=== PATIENT | male | born 1965 | race Caucasian/White ===

== ENCOUNTER 2020-05-08 12:41 | Inpatient (IN) ==
--- NOTE | 2020-05-08 13:06 | Emergency Department Note ---
Impression & Plan Abdominal pain, lower, Metastatic malignant neoplasm of unknown primary site, Ascites, Hyponatremia, Esophageal varices, Portal vein thrombosis, Jaundice, Hyperbilirubinemia, Pulmonary embolism ED Provider Note NAME: ALEX GALVAN AGE: 54 SEX: M ARRIVES VIA: Walk-In INFORMANT: [Patient] ED PROVIDER(S): Lucio Calero MD CHIEF COMPLAINT: Lower abdominal pain PLAN: Disposition: Admitted Condition: Guarded MEDICAL DECISION MAKING: Patient presented with complaints of jaundice and abdominal distention. His work-up included CT imaging and laboratory studies. The patient also had an ECG performed which showed sinus tachycardia. No ischemia. The patient has a mild anemia but no leukocytosis on CBC. His INR and PTT are elevated. He has elevated LFTs, hyponatremia and hypokalemia. His total bilirubin is very elevated at 10.3. Chest x-ray questioned an infiltrate and atelectasis in the right base. CT imaging of the abdomen pelvis was performed and shows significant tumor burden throughout as well as ascites. Questionable PE was noted. There is deep vein thrombosis in the abdomen as well. I relayed the findings to the patient. This is very concerning for a malignancy. Further management in the hospital will be necessary given the constellation of symptoms and signs. Patient was in agreement. I discussed the case with Dr. Alford of internal medicine. He is ordering IV heparin and I ordered the potassium. The patient will be evaluated and admitted for further work-up and management. Triage Nursing notes reviewed and agree them. Vital Signs: reviewed and remarkable for mild tachycardia Differential diagnosis: Appendicitis, testicular torsion, infections, diverticulitis, UTI, obstruction, mesenteric ischemia, aortic pathology, inflammatory bowel disease, renal colic, PUD, pancreatitis, biliary pathology, hernia, volvulus, constipation, liver disease as well as other pathologies. ER treatment provided: Saline hydration IV potassium IV heparin by internal medicine Diagnostics interpreted by me: ECG: Rate: 109 Rhythm: Sinus [place]: Right axis deviation QRS: Low voltage ST segements: No elevation or depression. Other: Septal Q waves Cardiac Monitoring: Cardiac monitoring ordered by me: The patient was placed on continuous cardiac monitoring and observed. It revealed a normal sinus rhythm at 95 beats per minute without ectopy or evidence of dysrhythmia. Laboratory studies: As above Imaging studies: CT scan of the abdomen pelvis and chest x-ray performed. Noted above. I refer to the EMR for further details. Consultation(s): Internal medicine HPI: The patient is a 54 year old male who presents to the Emergency Room with complaints of . This started several months ago and is worsening over the last 4 days. The patient also notes the following associated symptoms, joint pains, abdominal distention, weight loss, SOB, N/V. The patient has found no relieving factors. Current pain is rated as 3/10. He also notes being jaundice last two months. He quit ETOH at that time and jaundice improved. Pt denies LOC, headache, fevers, chills, diaphoresis, visual changes, neck pain, chest pain, back pain, melena, hematochezia, urinary symptoms, numbness, weakness, lymphadenopathy, rash, or other complaints. ROS: See above HPI for pertinent positives & negatives. A total of [10] systems reviewed and were otherwise negative. PAST MEDICAL HISTORY:[See Below] Neuroma PAST SURGICAL HISTORY:[See Below] FAMILY HISTORY:[See Below] SOCIAL HISTORY:[See Below]+ETOH, HOME MEDICATIONS:[See Below] ALLERGIES:[See Below] VITALS:[See Below] PHYSICAL EXAMINATION: GENERAL: Awake, alert, jaundice-appearing, in no distress HENT: Normocephalic, atraumatic. Oropharynx unremarkable. EYES: Normal conjunctiva. Sclera icteric. NECK: Inspection normal. Non-tender. Supple. No nuchal rigidity. FROM. No masses. RESPIRATORY: Clear to auscultation. No wheezes. No rales. Normal respiratory effort. CARDIAC: Normal rate. Normal rhythm. No murmurs. No rubs. Extremities warm and well perfused. Pulses equal. No JVD. GI: Soft, moderately-distended. +fluid wave. Lower tenderness to palpation. No rebound or guarding. No masses. RECTAL: Deferred. MUSCULOSKELETAL: Muscular atrophy. Chest examination reveals no tenderness. The back is symmetrical on inspection without obvious abnormality. There is no CVA tenderness to palpation. No joint edema. LOWER EXTREMITIES: Calves are equal size bilaterally and non-tender. No edema. No discoloration. NEURO: Normal sensorium. No sensory or motor deficits noted. SKIN: No rash or jaundice noted. ED COURSE: [Critical Care:] I have personally spent greater than 32 minutes of critical care time in the direct management of this patient. This includes bedside care, interpretation of diagnostic studies, and testing, discussion with consultants, patient, and other required patient management activities. These minutes are in excess of all separately billable procedures. 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 Beliefs That Will Affect Care: None Current Living Situation: Spouse Other Information That Helps Us Care for You: No Feels Safe at Home: Yes Safety Concerns: Feels Safe At This Time Smoking Status: Never smoker Do You Dip or Chew Tobacco: No ; Second Hand Exposure: No ; Tobacco Cessation Education Requested by Patient: No Hx Alcohol Use: Yes Hx Substance Use: No Allergies Allergies Allergy/AdvReac Type Severity Reaction Status Date / Time No Known Allergies Allergy Unverified 05/08/20 13:26 Home Meds Home Medications Medication Instructions Recorded Confirmed No Known Home Medications 05/08/20 05/08/20 Results & Data (ED) Vital Signs Vital Signs - 24 hr 05/08/20 12:49 05/08/20 13:31 05/08/20 14:50 Temperature 36.8 C Temperature Source Oral Pulse Rate 117 H Pulse Rate [Apical] 70 Respiratory Rate 20 20 Respiratory Effort / Characteristics Non-Labored Spontaneous Respiratory Depth Normal Respiratory Pattern Regular Blood Pressure 126/85 Blood Pressure [Left Arm] 130/70 Blood Pressure Mean 98 Blood Pressure Mean [Left Arm] 90 Blood Pressure Position Sitting Pulse Oximetry 98 96 99 Oxygen Delivery Method Room Air Room Air Sepsis Recent Fever Within 48 Hours No Sepsis New/Unexplained Change in Mental Status No Sepsis Action Taken by Nursing No Action Required 05/08/20 16:00 Temperature Temperature Source Pulse Rate Pulse Rate [Apical] 80 Respiratory Rate 19 Respiratory Effort / Characteristics Respiratory Depth Respiratory Pattern Blood Pressure Blood Pressure [Left Arm] 123/74 Blood Pressure Mean Blood Pressure Mean [Left Arm] 90 Blood Pressure Position Pulse Oximetry Oxygen Delivery Method Sepsis Recent Fever Within 48 Hours Sepsis New/Unexplained Change in Mental Status Sepsis Action Taken by Nursing Laboratory Data Result diagrams: 05/08/20 13:28 05/08/20 13:28 Lab Results 05/08/20 05/08/20 05/08/20 Range/Units 13:28 13:28 13:28 WBC 8.73 (4.8-10.8) K/uL RBC 4.55 L (4.7-6.1) M/uL Hgb 12.1 L (14.0-18.0) g/dL Hct 36.3 L (42-52) % MCV 79.8 L (80-100) fL MCH 26.6 (25-34) pg MCHC 33.3 (32-36) g/dL RDW Std Deviation 45.4 (36.4-46.3) fL RDW Coeff of Jamin 15.7 H (11.5-14.5) % Plt Count 362 (130-400) K/uL MPV 9.8 (7.4-10.4) fL Immature Gran % (Auto) 0.2 % Neut % (Auto) 80.1 % Lymph % (Auto) 10.9 % [place] % (Auto) 8.7 % Eos % (Auto) 0.0 % Baso % (Auto) 0.1 % Neut # (Auto) 6.99 H (1.4-6.5) K/uL Lymph # (Auto) 0.95 L (1.2-3.4) K/uL [place] # (Auto) 0.76 H (0.11-0.59) K/uL Eos # (Auto) 0.00 (0-0.5) K/uL Baso # (Auto) 0.01 (0-0.2) K/uL Immature Gran # (Auto) 0.02 (0.00-0.02) K/uL PT 22.9 H (9.0-12.0) Seconds INR 2.3 H (0.9-1.1) APTT (21.0-31.0) Seconds PTT Ratio Sodium 127 L (136-145) mmol/L Potassium 3.2 L (3.5-5.1) mmol/L Chloride 89 L (98-107) mmol/L Carbon Dioxide 27 (21-32) mmol/L Anion Gap 10.0 (3-11) BUN 7 (7-18) mg/dl Creatinine 1.03 (0.6-1.4) mg/dl Est Cr Clr Drug Dosing 76.1 ml/min Est GFR ( Amer) 93.7 Est GFR (Non-Af Amer) 80.8 BUN/Creatinine Ratio 7.0 L (10-20) Glucose 97 (70-99) mg/dl Calcium 8.3 L (8.5-10.1) mg/dl Total Bilirubin 10.3 H (0.2-1) mg/dl AST 120 H (15-37) U/L ALT 26 (12-78) U/L Alkaline Phosphatase 402 H (45-117) U/L Ammonia (11-32) umol/L Troponin I < 0.015 (0-0.045) ng/ml Total Protein 8.4 H (6.4-8.2) gm/dl Albumin 2.1 L (3.4-5.0) gm/dl Globulin 6.3 H (2.5-4.0) gm/dl Albumin/Globulin Ratio 0.3 L (0.9-2) Lipase 206 (73-393) U/L Specimen Hemolysis 05/08/20 05/08/20 Range/Units 13:28 13:45 WBC (4.8-10.8) K/uL RBC (4.7-6.1) M/uL Hgb (14.0-18.0) g/dL Hct (42-52) % MCV (80-100) fL MCH (25-34) pg MCHC (32-36) g/dL RDW Std Deviation (36.4-46.3) fL RDW Coeff of Jamin (11.5-14.5) % Plt Count (130-400) K/uL MPV (7.4-10.4) fL Immature Gran % (Auto) % Neut % (Auto) % Lymph % (Auto) % [place] % (Auto) % Eos % (Auto) % Baso % (Auto) % Neut # (Auto) (1.4-6.5) K/uL Lymph # (Auto) (1.2-3.4) K/uL [place] # (Auto) (0.11-0.59) K/uL Eos # (Auto) (0-0.5) K/uL Baso # (Auto) (0-0.2) K/uL Immature Gran # (Auto) (0.00-0.02) K/uL PT (9.0-12.0) Seconds INR (0.9-1.1) APTT 46.3 H* (21.0-31.0) Seconds PTT Ratio 1.7 Sodium (136-145) mmol/L Potassium (3.5-5.1) mmol/L Chloride (98-107) mmol/L Carbon Dioxide (21-32) mmol/L Anion Gap (3-11) BUN (7-18) mg/dl Creatinine (0.6-1.4) mg/dl Est Cr Clr Drug Dosing ml/min Est GFR ( Amer) Est GFR (Non-Af Amer) BUN/Creatinine Ratio (10-20) Glucose (70-99) mg/dl Calcium (8.5-10.1) mg/dl Total Bilirubin (0.2-1) mg/dl AST (15-37) U/L ALT (12-78) U/L Alkaline Phosphatase (45-117) U/L Ammonia < 10.0 L (11-32) umol/L Troponin I (0-0.045) ng/ml Total Protein (6.4-8.2) gm/dl Albumin (3.4-5.0) gm/dl Globulin (2.5-4.0) gm/dl Albumin/Globulin Ratio (0.9-2) Lipase (73-393) U/L Specimen Hemolysis Administered Medications Heparin Sodium/Dextrose (Heparin Sodium/Dextrose) 25,000 units in 500 mls @ 24 mls/hr IV .[id number] [facility]; Protocol Stop: 06/07/20 18:14 Last Admin: 05/08/20 20:32 Dose: 1,200 units/hr, 24 mls/hr Documented by: [id number] Cosigned by: [id number] Discontinued Medications Heparin Sodium/Dextrose () 1 ea IV Q15M RISHABH; Protocol Stop: 05/08/20 18:20 Last Admin: 05/08/20 20:36 Dose: 1 ea Documented by: [id number] Sodium Chloride (Nss) 500 mls @ 999 mls/hr IV .Q31M RISHABH Stop: 05/08/20 13:45 Last Infusion: 05/08/20 14:05 Dose: 0 mls/hr Documented by: [id number] Admin: 05/08/20 13:28 Dose: 999 mls/hr Documented by: [id number] Potassium Chloride (K Wenceslao / Wtr) 10 meq in 100 mls @ 100 mls/hr IV ONE ONE Stop: 05/08/20 17:49 Last Infusion: 05/08/20 20:42 Dose: 0 mls/hr Documented by: [id number] Admin: 05/08/20 17:18 Dose: 100 mls/hr Documented by: [id number] Ioversol (Optiray 320 100ml) 93 ml IV ONCE PRN PRN Reason: Interaction Checking Stop: 05/12/20 15:54 Last Admin: 05/08/20 15:56 Dose: 93 ml Documented by: [id number] Discharge Plan Visit Data *Final* Discharge Date/Time: 05/08/20 19:04 Chief Complaint: Abdominal Pain Stated Complaint: HAVING TROUBLE BREATHING, LIVER FAILURE ED Provider: Lucio Calero Discharge Problem: Abdominal pain, lower, Metastatic malignant neoplasm of unknown primary site, Ascites, Hyponatremia, Esophageal varices, Portal vein thrombosis, Jaundice, Hyperbilirubinemia, Pulmonary embolism Patient Disposition: Admitted As Inpatient Discharge Instructions Interventions: ED Discharge Assessment Last Done: 05/08/20 19:04
[2020-05-08] MEDS ORDERED: SODIUM CHLORIDE 0.9% 500 ML IV SCH (13:15)
--- NOTE | 2020-05-08 13:35 | XRay Report ---
XR chest 1V portable CLINICAL HISTORY: abd pain, sob dyspnea COMPARISON STUDY: No previous studies for comparison. FINDINGS: Small parenchymal infiltrate left base. Atelectasis right base. Minimal upper lungs are ellen ar. IMPRESSION: 1. Small parenchymal infiltrate left base. 2. Mild atelectasis right base. ACT 112: Negative or not required by law. The above report was generated using voice recognition software. It may contain grammatical, syntax or spelling errors. Electronically signed by: Brendon Hein M.D. 05/08/2020 1:34 PM
[2020-05-08 13:50] LABS: INR 2.3 (0.9-1.1); Prothrombin Time 22.9 Seconds (9.0-12.0)
[2020-05-08 13:54] LABS: Basophils # (auto) 0.01 K/uL (0-0.2); Basophils % (auto) 0.1 %; Hematocrit (blood only) 36.3 % (42-52); Hemoglobin 12.1 g/dL (14.0-18.0); Immature Granulocytes # (auto) 0.02 K/uL (0.00-0.02); Immature Granulocytes % (auto) 0.2 %; Lymphocytes # (auto) 0.95 K/uL (1.2-3.4); Lymphocytes % (auto) 10.9 %; Mean Corpuscular Hemoglobin 26.6 pg (25-34); Mean Corpuscular Hgb Conc 33.3 g/dL (32-36); Mean Corpuscular Volume 79.8 fL (80-100); Mean Platelet Volume 9.8 fL (7.4-10.4); Monocytes # (auto) 0.76 K/uL (0.11-0.59); Monocytes % (auto) 8.7 %; Neutrophils # (auto) 6.99 K/uL (1.4-6.5); Neutrophils % (auto) 80.1 %; Platelet Count 362 K/uL (130-400); RDW Coefficient of Variation 15.7 % (11.5-14.5); RDW Standard Deviation 45.4 fL (36.4-46.3); Red Blood Count 4.55 M/uL (4.7-6.1); White Blood Count 8.73 K/uL (4.8-10.8)
[2020-05-08 14:03] LABS: Alanine Aminotransferase 26 U/L (12-78); Albumin Globulin Ratio 0.3 (0.9-2); Albumin Level 2.1 gm/dl (3.4-5.0); Alkaline Phosphatase 402 U/L (45-117); Aspartate Aminotransferase 120 U/L (15-37); Bilirubin,Total 10.3 mg/dl (0.2-1); Blood Urea Nitrogen 7 mg/dl (7-18); Calcium 8.3 mg/dl (8.5-10.1); Carbon Dioxide 27 mmol/L (21-32); Chloride 89 mmol/L (98-107); Creatinine Clr Calc Pharmacy 76.1 ml/min; Est GFR (African American) 93.7; Est GFR (Non-African American) 80.8; Globulin 6.3 gm/dl (2.5-4.0); Glucose 97 mg/dl (70-99); Lipase 206 U/L (73-393); Potassium 3.2 mmol/L (3.5-5.1); Sodium 127 mmol/L (136-145); Total Protein 8.4 gm/dl (6.4-8.2); Troponin I < 0.015 ng/ml (0-0.045)
--- NOTE | 2020-05-08 14:37 | Electrocardiogram Report ---
Test Reason : Blood Pressure : / mmHG Vent. Rate : 109 BPM Atrial Rate : 109 BPM P-R Int : 150 ms QRS Dur : 070 ms QT Int : 296 ms P-R-T Axes : 078 105 098 degrees QTc Int : 398 ms Sinus tachycardia Rightward axis Low voltage QRS Poor R wave progression, consider anterior DE vs. lead placement vs. LVH Abnormal ECG No previous ECGs available Confirmed by Randal Browning ([id number]) on 05/08/2020 2:37:41 PM Referred By: REFERRED SELF Confirmed By:Randal Browning
[2020-05-08] MEDS ORDERED: IOVERSOL 100ml IV PRN (15:55)
--- NOTE | 2020-05-08 16:26 | CT Scan Report ---
CT SCAN OF THE ABDOMEN AND PELVIS WITH IV CONTRAST CLINICAL HISTORY: Lower abdominal pain. Bloating. COMPARISON STUDY: No priors. TECHNIQUE: Following the IV administration of 93 cc of Optiray 320, CT scan of the abdomen and pelvi s is performed from the lung bases to the proximal femora. Images are reviewed in the axial, sagittal , and coronal planes. IV contrast was administered without complication. Oral contrast was utilized. A dose lowering technique was utilized adhering to the principles of ALARA. CT DOSE: 609.17 mGycm FINDINGS: Lung bases: The heart is normal in size and without pericardial effusion. The coronary arteries are c alcified. There are small to moderate pleural effusions, right larger than left with associated atele ctasis. A subcarinal node is partially visualized and measures at least 2.0 x 2.1 cm. There is a smal l hiatal hernia. Esophageal varices are noted. Question pulmonary embolus within a branch of the righ t pulmonary artery on image #7. Liver: The contrast-enhanced liver is enlarged, measuring 20.2 cm in length. The liver is heterogeneo us in attenuation. There is moderate intrahepatic biliary ductal dilatation. There are numerous (grea ter than 10) low attenuation hepatic lesions scattered throughout all hepatic lobes. This is high con cerning for metastatic disease. The largest lesion is seen in the left lobe on image #115 and measure s 2.7 x 2.5 cm. The hepatic veins and the intrahepatic portal veins are patent. There is extensive an d nearly occlusive thrombus present within the main portal vein which extends from the portosplenic c onfluence to the hepatic hilum. There are perigastric and perisplenic collaterals. Gallbladder: There are calcified gallstones, with no CT evidence of acute cholecystitis. Spleen: The spleen is enlarged measuring 15 cm in length. There are 5 heterogeneous low-attenuation s plenic lesions which measure up to 3.8 cm. These are highly concerning for splenic metastases. Pancreas: The pancreas is displaced anteriorly by the large mass centered in the kishan hepatis. The p ancreatic parenchyma is grossly normal. No definite pancreatic mass lesion is seen. The pancreatic du ct is normal in caliber. Adrenal glands: A 1.7 cm left adrenal lesion is seen on image #176. The right adrenal gland is not we ll evaluated due to adjacent mass lesions. Kidneys: The contrast enhanced kidneys are normal in size and without hydronephrosis. The kidneys enh ance symmetrically. Abdominal vasculature: The abdominal aorta is normal in course and caliber noting mild atheroscleroti c calcification. There is mass effect with narrowing of the inferior vena cava. The cava remains schultz nt. There is also mass effect on the left renal vein which remains patent. There are left lateral col lateral vessels. Bowel: There is no bowel obstruction. Enteric contrast reaches the rectum. There is moderate colonic diverticulosis without CT evidence of acute diverticulitis. The appendix is well-visualized and norm al. Peritoneum an lymph nodes: There is a large heterogeneous mass lesion centered in the kishan hepatis. This is located between the hepatic hilum, the pancreas, and the great vessels. This mass lesion hirla ures approximately 14 x 10 x 15 cm as seen on image #196. There is mesenteric lymphadenopathy versus peritoneal metastatic disease. A right lower quadrant lesion on image #253 measures 4.1 x 3.4 cm. A l esion in the left upper quadrant on image #242 measures 5.3 x 4.5 cm. Numerous additional smaller mes enteric lesions are identified. There is bulky retroperitoneal lymphadenopathy. A lesion anterior to the upper pole of the left kidney on image #158 measures 4.6 x 4.0 cm. There is a large volume of abd ominopelvic ascites. No intraperitoneal free air is seen. Pelvic viscera: The bladder, prostate, and seminal vesicles are normal as imaged. Skeletal structures: No lytic or blastic lesions are seen. There are healed right-sided rib fractures . Soft tissues: The patient is cachectic. A soft tissue nodule in the left perineal soft tissues on morteza ge #[id number] measures 1.6 x 1.1 cm. A soft tissue lesion is partially imaged in the right upper thigh on i mage #[id number]. This measures at least 2.5 cm. IMPRESSION: 1. Findings are consistent with extensive metastatic disease. 2. The liver and spleen are enlarged and heterogeneous with hepatic and splenic metastases. 3. There is a large heterogeneous mass lesion centered in the kishan hepatis as detailed above, as wel l as bulky retroperitoneal adenopathy. Subcarinal adenopathy is partially visualized. 4. There is mesenteric lymphadenopathy versus peritoneal metastatic disease with a large volume of ab dominopelvic ascites. 5. There is a soft tissue lesion identified in the left perineal region and a second lesion is also l ikely present within the right upper thigh. 6. There is no clear abdominal visceral origin, and a definitive primary neoplasm cannot be delineate d on this examination. Top considerations include lymphoma, melanoma, or possibly a sarcoma. Tissue s ampling will be required for definitive diagnosis. 7. Question pulmonary embolus within a branch of the right lower lobe pulmonary artery. Consider foll ow-up with a dedicated CT angiogram of the chest. 8. There are moderate pleural effusions, right larger than left with associated atelectasis. 9. There is near complete thrombosis of the main portal vein extending from the portosplenic confluen ce to the hepatic hilum. The intrahepatic portal venous branches are patent. 10. There are numerous vascular collaterals including esophageal varices, perisplenic and perigastric varices, and left gonadal collaterals. 11. There is moderate intrahepatic biliary ductal dilatation secondary to the mass lesion in hepatic hilum. Although there is mass effect on the pancreas, no clear pancreatic lesion is seen and the panc reatic duct is normal in caliber. 12. Cholelithiasis. 13. Additional findings as above. ACT 112: Negative or not required by law. Electronically signed by: Lowell Dee M.D. 05/08/2020 4:24 PM
[2020-05-08] MEDS ORDERED: POTASSIUM CHLORIDE / WTR 10 MEQ/100 ML PLCT IV ONE (16:50)
--- NOTE | 2020-05-08 17:20 | History & Physical Report ---
Date of Service May 08, 2020 Assessment & Plan (1) Metastatic malignant neoplasm of unknown primary site: Patient does not want family to know this diagnosis Paracentesis of ascites for diagnostic and therapeutic, stop IV heparin drip 2 hours prior to procedure Suspect melanoma primary, although alternative possibility HCC with alcohol history (AFP with morning labs) Once confirmed primary consult oncology (may be followed up as outpatient) (2) Jaundice: Unclear if obstructive vs. intrahepatic. US liver for CBD dilatation as discussed with Dr Martinez and will consult for AM NPO after midnight in case of need for ERCP Repeat LFTs in AM Consult gastroenterology (3) Hyperbilirubinemia: No confusion from this suggesting slow gradual process over time. Management as per jaundice above (4) Ascites: Suspected malignant Plan for paracentesis in AM for diagnostic and therapeutic purposes - 4L to be removed (5) Pulmonary embolism: Noted possibility on CT A/P. Plan for CT chest for PE in AM to space out IV contrast dosing. Right axis deviation noted on EKG. If PE confirmed on CT recommend echocard iogram to assess for right heart strain Started on heparin IV drip without a bolus as appears relatively hemodynamically stable from this point of view with O2 sats 94% on RA (6) Hyponatremia: Suspect secondary to hypervolemic state with liver failure and ascites NSS bolus given in ER. Will start on NaCl 1g BID tabs and repeat BMP in AM. Hopefully with 4L ascitic fluid removal hyponatremia will improve. (7) Esophageal varices: Noted on CT - risk for bleeding but risk of life-threatening PE would outweigh potential for bleeding currently No prior history of GI bleeds (8) Pleural effusion, malignant: Suspected to be malignant given malignant tumors noted on CT (9) Portal vein thrombosis: IV heparin drip without bolus as above (10) Alcohol use disorder: Stopped drinking alcohol 1 month ago when he started getting jaundiced Half a pack of beer/day prior to this (11) Post-inflammatory hyperpigmentation: Post-inflammatory hyperpigmentation vs. Lentigo vs. Melasma Age, sex, skin tone and distribution favors post-inflammatory hyperpigmentation Very extensive, relatively homogenous and confluent for lentigo. No specific lesion concerning for lentigo maligna but given how extensive the area is a progression over the last few years with associated weight loss and current CT assumption at this stage is for malignant melanoma (12) Severe protein-calorie malnutrition: Nutritional supplements as per ibm bpm developer recommendations (13) DVT prophylaxis: On IV heparin drip as above Admission and Anticipated Discharge Date Admission Date: 05/08/2020 History of Present Illness Chief Complaint: Jaundice and abdominal distention Primary Care Provider: NO PCP Oscar Rice is an unfortunate 54-year-old male who usually does not seek medical attention. He presents to the ER with 4 days of abdominal pain with abdominal distention. He has a significant alcohol history drinking 0.5 cases of beer per day. He noticed he was becoming significantly jaundiced 1 month ago and stopped drinking alcohol. He noticed a mild improvement with his jaundice since stopping alcohol. He denies any change in his bowels, no melena, red blood in stools, nausea or vomiting. No history of hematemesis. He has noticed significant unintentional weight loss over the last 2 years. He has a large number of moles all over his body with a few removed in the past which he reports came back benign. He has not noticed any in particular getting larger. He does notice his skin becomes significantly hyperpigmented in the summer months but it resolves to his usual pale skin in the winter. This is been occurring over the last 2 years in addition. He has noticed shortness of breath on exertion getting increasingly worse over the last year. No chest pain. His abdominal pain is mild but did get a little bit worse on drinking oral contrast in the ER. Associated generalized weakness getting worse over the last month. No change in his vision, hearing, speech. Allergies Allergy/AdvReac Type Severity Reaction Status Date / Time No Known Allergies Allergy Unverified 05/08/20 13:26 Home Medications Home Medications Medication Instructions Recorded Confirmed Type No Known Home Medications 05/08/20 05/08/20 History Past Med/Surg History Social History Preferred Language: Amharic Communication Ability: Effective Ceramic Chemist Required: No Beliefs That Will Affect Care: None Current Living Situation: Spouse Other Information That Helps Us Care for You: No Feels Safe at Home: Yes Safety Concerns: Feels Safe At This Time Smoking Status: Never smoker Do You Dip or Chew Tobacco: No ; Second Hand Exposure: No ; Tobacco Cessation Education Requested by Patient: No Hx Alcohol Use: Yes Hx Substance Use: No Review of Systems Review of Systems: All systems reviewed & are unremarkable except as noted in HPI & below Constitutional: + fatigue, + weakness and + weight loss; no fever, no chills and no increased appetite Eyes: no problem reported Ear, Nose, Mouth, Throat: no problem reported Respiratory: + dyspnea on exertion Cardiovascular: + dyspnea on exertion, + orthopnea, + paroxysmal nocturnal dyspnea and + lightheadedness; no chest pain, no dyspnea at rest, no palpitations, no syncope, no edema, no calf pain and no claudication Gastrointestinal: + abdominal pain and + early satiety; no belching, no heartburn, no nausea, no vomiting, no pain with swallowing, no dysphagia, no excessive flatulence, no change in bowel habits, no constipation, no fecal incontinence and no blood in stools Genitourinary: no problem reported Musculoskeletal: + muscle weakness (Generalized, gradual onset over 2 years) and + muscle atrophy; no back pain and no neck pain Integumentary: as per Subjective / HPI Neurologic: no falls, no localized weakness and no paresthesia Psychiatric: no problem reported Physical Exam Constitutional: well developed and + cachectic; + not well nourished and no acute distress Eyes: PERRL and EOM intact bilaterally; sclerae not anicteric ENMT: Ears: no external ear abnormality Nose: no external nose abnormality Mouth: + dry oral mucous membranes Neck: trachea midline Respiratory: normal respiratory effort, lungs clear to auscultation Cardiovascular: Rate/Rhythm: regular rate and regular rhythm Heart Sounds: no murmur Vessels: no JVD Extremities: normal capillary refill; no calf tenderness and no pedal edema Gastrointestinal (Abdomen): Inspection/Auscultation: + abdomen distended and normal bowel sounds Percussion/Palpation: + abdomen tender (Generalized mild, worse in the right upper quadrant), abdomen soft and + hepatomegaly; no guarding and abdomen not rigid Musculoskeletal: Head/Neck/Chest: normocephalic and head atraumatic Extremities: + muscle atrophy Skin: + abnormal skin elasticity Confluent skin hyperpigmentation over sun exposed areas on back, bilateral arms and face, confluent with well demarcated areas of pale skin. Neurologic: moves all extremities and awake; no focal motor deficits and not confused Speech / Cognition: normal speech Motor/Sensory: no tremor, no pronator drift, no asterixis and no sensory deficit Coordination: normal obceck-qf-vzza test and normal [id number]-kw-klcn test Psychiatric: Orientation: alert and oriented x 3 Affect: + flat affect Genitourinary: no CVA tenderness Results & Data Results & Data ([facility]) Vital Signs (Past 12 Hours) Vital Signs Temp Pulse Pulse Resp BP BP Pulse Ox 05/08/20 16:00 80 19 123/74 05/08/20 14:50 70 20 130/70 99 05/08/20 13:31 96 05/08/20 12:49 36.8 C 117 H 20 126/85 98 Diagnostic Findings XR chest 1V portable IMPRESSION: 1. Small parenchymal infiltrate left base. 2. Mild atelectasis right base. CT SCAN OF THE ABDOMEN AND PELVIS WITH IV CONTRAST IMPRESSION: 1. Findings are consistent with extensive metastatic disease. 2. The liver and spleen are enlarged and heterogeneous with hepatic and splenic metastases. 3. There is a large heterogeneous mass lesion centered in the kishan hepatis as detailed above, as well as bulky retroperitoneal adenopathy. Subcarinal adenopathy is partially visualized. 4. There is mesenteric lymphadenopathy versus peritoneal metastatic disease with a large volume of abdominopelvic ascites. 5. There is a soft tissue lesion identified in the left perineal region and a second lesion is also likely present within the right upper thigh. 6. There is no clear abdominal visceral origin, and a definitive primary neoplasm cannot be delineated on this examination. Top considerations include lymphoma, melanoma, or possibly a sarcoma. Tissue sampling will be required for definitive diagnosis. 7. Question pulmonary embolus within a branch of the right lower lobe pulmonary artery. Consider follow-up with a dedicated CT angiogram of the chest. 8. There are moderate pleural effusions, right larger than left with associated atelectasis. 9. There is near complete thrombosis of the main portal vein extending from the portosplenic confluence to the hepatic hilum. The intrahepatic portal venous branches are patent. 10. There are numerous vascular collaterals including esophageal varices, perisplenic and perigastric varices, and left gonadal collaterals. 11. There is moderate intrahepatic biliary ductal dilatation secondary to the mass lesion in hepatic hilum. Although there is mass effect on the pancreas, no clear pancreatic lesion is seen and the pancreatic duct is normal in caliber. 12. Cholelithiasis. 13. Additional findings as above. ECG Indication: abdominal pain Rate (beats per minute): 109 Rhythm: sinus tachycardia Findings: + other (Rightward axis) Comparison ECG Date: no prior available Code Status & VTE Plan Code Status DNR/DNI as discussed with the patient. Currently does not wish this discussed with his family. VTE Prophylaxis Plan VTE Prophylaxis will be ordered: Yes PG Care Time/CCT Total # of Minutes Spent Total Time Spent with Patient: Total time spent is greater than 50% in coordination of care (as documented) at patient's floor/unit and/or counseling patient: Coding Level of Care Code 39730 Initial Inpt Care Lvl 3 Diagnoses Metastatic malignant neoplasm of unknown primary site C79.9; C80.1 Jaundice R17 Hyperbilirubinemia E80.6 Ascites R18.0 Ascites type: malignant Pulmonary embolism I26.93 Pulmonary embolism type: single subsegmental (without acute cor pulmonale) Hyponatremia E87.1 Esophageal varices I85.00 Pleural effusion, malignant J91.0 Portal vein thrombosis I81 Alcohol use disorder Post-inflammatory hyperpigmentation L81.0 Severe protein-calorie malnutrition E43 DVT prophylaxis Z29.9 (1) Ascites Ascites type: malignant Qualified Code(s): R18.0 - Malignant ascites (2) Pulmonary embolism Pulmonary embolism type: single subsegmental (without acute cor pulmonale) Qualified Code(s): I26.93 - Single subsegmental pulmonary embolism without acute cor pulmonale
[2020-05-08 17:34] LABS: Partial Thromboplastin Ratio 1.7
[2020-05-08 17:41] LABS: Partial Thromboplastin Time 46.3 Seconds (21.0-31.0)
[2020-05-08] MEDS ORDERED: Heparin IV Standard *NO* Bolus IV SCH (18:11)
[2020-05-08] MEDS ORDERED: HEPARIN SODIUM/DEXTROSE 25,000 UNITS/500 ML BAG IV SCH (18:15)
[2020-05-08] MEDS ORDERED: ONDANSETRON INJ 2 MG/ML 2 ML VIAL IV PRN (20:17)
[2020-05-08] MEDS ORDERED: ALUMINUM/MAGNESIUM SUSP 30 ML UDC PO PRN (20:17)
[2020-05-08] MEDS ORDERED: POTASSIUM CHLORIDE 20 MEQ TABCR PO STA (21:23)
[2020-05-08] MEDS: SODIUM CHLORIDE 1 GM TABLET PO SCH (21:49)
[2020-05-09 02:56] LABS: Basophils # (auto) 0.01 K/uL (0-0.2); Basophils % (auto) 0.1 %; Eosinophils # (auto) 0.03 K/uL (0-0.5); Eosinophils % (auto) 0.4 %; Hematocrit (blood only) 30.1 % (42-52); Immature Granulocytes # (auto) 0.03 K/uL (0.00-0.02); Immature Granulocytes % (auto) 0.4 %; Lymphocytes # (auto) 1.09 K/uL (1.2-3.4); Lymphocytes % (auto) 14.2 %; Mean Corpuscular Hemoglobin 25.8 pg (25-34); Mean Corpuscular Hgb Conc 33.2 g/dL (32-36); Mean Corpuscular Volume 77.8 fL (80-100); Mean Platelet Volume 9.1 fL (7.4-10.4); Monocytes # (auto) 0.76 K/uL (0.11-0.59); Monocytes % (auto) 9.9 %; Neutrophils # (auto) 5.75 K/uL (1.4-6.5); Platelet Count 302 K/uL (130-400); RDW Coefficient of Variation 15.6 % (11.5-14.5); RDW Standard Deviation 43.8 fL (36.4-46.3); Red Blood Count 3.87 M/uL (4.7-6.1); White Blood Count 7.67 K/uL (4.8-10.8)
[2020-05-09 03:22] LABS: INR 3.5 (0.9-1.1); Partial Thromboplastin Ratio > 5.0; Prothrombin Time 34.9 Seconds (9.0-12.0)
[2020-05-09 03:35] LABS: Partial Thromboplastin Time > 139.0 Seconds (21.0-31.0)
[2020-05-09 03:41] LABS: Albumin Level 1.7 gm/dl (3.4-5.0); BUN Creatinine Ratio 9.4 (10-20); Bilirubin Direct 7.1 mg/dl (0-0.2); Calcium 7.7 mg/dl (8.5-10.1); Creatinine Clr Calc Pharmacy 80.5 ml/min; Potassium 3.5 mmol/L (3.5-5.1)
[2020-05-09 04:05] LABS: Bilirubin,Total 8.4 mg/dl (0.2-1); Thyroid Stimulating Hormone 4.67 uIu/ml (0.300-4.500); Total Protein 6.9 gm/dl (6.4-8.2)
[2020-05-09 04:27] LABS: T4 Free Thyroxine 2.05 ng/dl (0.8-1.6)
[2020-05-09 05:01] LABS: Partial Thromboplastin Ratio 2.9
[2020-05-09 05:15] LABS: Partial Thromboplastin Time 80.5 Seconds (21.0-31.0)
[2020-05-09 05:21] LABS: Appearance Urine Turbid (Clear); Color Urine Brown
[2020-05-09 05:22] LABS: Protein Urine Positive (Negative); Specific Gravity Urine 1.054 (1.000-1.060); Sulfosalicylic Acid Urine Positive (Negative)
[2020-05-09 05:28] LABS: Hyaline Casts Urine 0-5 /lpf (0-5)
[2020-05-09 05:29] LABS: Bacteria Urine 1+ (Negative); Epithelial Cell Urine 0-5 /lpf (0-5); RBC Urine 0-4 /hpf (0-4)
[2020-05-09] MEDS ORDERED: OPTIRAY 320 125ml IV PRN (06:40)
--- NOTE | 2020-05-09 07:29 | Ultrasound Report ---
ULTRASOUND RIGHT UPPER QUADRANT ABDOMEN CLINICAL HISTORY: Biliary ductal dilatation.. COMPARISON STUDY: Abdominal CT dated 05/08/2020. TECHNIQUE: Real-time, grayscale, and color flow sonography of the right upper quadrant of the abdomen was performed. Images are reviewed in the transverse and longitudinal planes. FINDINGS: Liver: The liver is enlarged and heterogeneous in echotexture. There is intrahepatic biliary ductal d ilatation. Hypoechoic hepatic lesions are consistent with metastatic disease. Gallbladder: The gallbladder is filled with stones and sludge. Gallbladder wall thickening is nonspec ific. The gallbladder wall measures up to 7 mm. There is surrounding ascites. A sonographic Fernandez's sign is reportedly absent. The common bile duct measures up to 1.3 cm in diameter. Pancreas: Not visualized due to overlying bowel gas. Right kidney: Survey images of the right kidney demonstrate normal size and echotexture. There is no hydronephrosis. Retroperitoneal soft tissue lesions are identified superior to the right kidney. Ascites: There is upper abdominal ascites. Pleural spaces: There is a right pleural effusion. IMPRESSION: 1. The liver is enlarged with evidence of hepatic metastatic disease. This was better assessed on vijay oakley's abdominal CT. 2. Abdominal ascites or pleural effusion. 3. The gallbladder is distended and filled with stones and sludge. Gallbladder wall thickening and ed eddie is nonspecific, and may be related to hepatocellular disease and ascites. A sonographic Fernandez's sign is reportedly absent. Acute cholecystitis would be impossible to exclude. If there is clinical c oncern for cholecystitis a nuclear hepatobiliary scan should be considered. 4. There is intra and extrahepatic biliary ductal dilatation related to a large mass lesion in the po rta hepatis. This was better assessed by CT. ACT 112: Negative or not required by law. Electronically signed by: Lowell Dee M.D. 05/09/2020 7:28 AM
[2020-05-09 07:36] LABS: Partial Thromboplastin Ratio 1.9
[2020-05-09 08:16] LABS: Partial Thromboplastin Time 52.4 Seconds (21.0-31.0)
--- NOTE | 2020-05-09 08:44 | CT Scan Report ---
CT ANGIOGRAM OF THE CHEST CLINICAL HISTORY: Dyspnea. COMPARISON STUDY: Chest x-ray dated 05/08/2020. Abdominal CT dated 05/08/2020. TECHNIQUE: Following the IV administration of 92 cc of Optiray 320, CT angiogram of the chest was per formed from the upper abdomen to the thoracic inlet utilizing the pulmonary embolus protocol. Images are reviewed in the axial, sagittal, and coronal planes. 3-D MIPS images are created and assessed. IV contrast was administered without complication. A dose lowering technique was utilized adhering to the principles of ALARA. CT DOSE: 214.94 mGy.cm FINDINGS: Thyroid: Imaged portions of the thyroid gland are normal in size and attenuation. Thoracic aorta: There is mild atherosclerotic calcification of the thoracic aorta. The thoracic aorta is normal in caliber and demonstrates standard 3-vessel arch anatomy. No dissection is seen. Pulmonary vasculature: The pulmonary trunk is normal in caliber. There are no filling defects identif ied in main, lobar, or segmental pulmonary branches to suggest pulmonary embolus. Heart: The heart is normal in size and without pericardial effusion. There are coronary artery calcif ications. Lungs and pleural spaces: There are moderate pleural effusions with associated atelectasis. No airspa ce consolidation is seen typical for pneumonia. The trachea and central airways are clear. No concern ing pulmonary lesion is identified. Mediastinum: Enlarged subcarinal node on image #116 measures approximately 3 x 2.2 cm.. Cara: A left suprahilar node on image #136 measures 1.8 x 1.7 cm. No right hilar adenopathy is identi fied. Axillae: There is no axillary lymphadenopathy. Upper abdomen: There is upper abdominal ascites. The liver and spleen are enlarged, with evidence of hepatic and splenic metastatic disease. Skeletal structures: There or sclerotic lesions identified within the body of T4 concerning for osteo blastic metastases. These are best seen on images #159 and #167. There is chronic posttraumatic defor mity of the right clavicle. Healed right-sided rib fractures are noted. IMPRESSION: 1. There is no evidence of pulmonary embolus in the main, lobar, or segmental pulmonary arteries. The finding questioned on the abdominal CT scan was likely artifactual. 2. Moderate pleural effusions with associated atelectasis. 3. There is evidence of mediastinal and left hilar metastatic disease. 4. No airspace consolidation is identified typical for pneumonia. 5. The liver and spleen are enlarged with evidence of hepatic and splenic metastatic disease. 6. Upper abdominal ascites. 7. Sclerotic lesions in the body of T4 are concerning for osteoblastic metastases. 8. Additional findings as above. ACT 112: Negative or not required by law. Electronically signed by: Lowell Dee M.D. 05/09/2020 8:42 AM
[2020-05-09] MEDS: SODIUM CHLORIDE 1 GM TABLET PO SCH ×2 (09:54→20:05)
[2020-05-09 10:41] LABS: Hepatitis B Surface Antigen Neg (Neg)
--- NOTE | 2020-05-09 10:56 | Ultrasound Report ---
PARACENTESIS UNDER ULTRASOUND GUIDANCE CLINICAL HISTORY: Lower abdominal pain. Ascites. COMPARISON STUDY: Abdominal CT dated 05/08/2020. PROCEDURE: The risks, benefits, and alternatives to the procedure were discussed with the patient who voiced understanding. Written informed consent was obtained. Following real-time ultrasound localiza tion of a suitable pocket of fluid in the right lower quadrant, the abdomen was prepped and draped in the usual sterile fashion. The skin and soft tissues were anesthetized with 1% lidocaine. The sheath ed paracentesis needle was inserted and approximately 4 liters of serosanguineous ascitic fluid was r emoved by vacuum suction. The procedure was well tolerated and without immediate complication. The pa tient left the department in satisfactory condition. IMPRESSION: Successful ultrasound-guided paracentesis with removal of approximately 4 liters of ascit ic fluid. ACT 112: Negative or not required by law. Electronically signed by: Lowell Dee M.D. 05/09/2020 10:55 AM
[2020-05-09 11:14] LABS: Hepatitis C IgG 13Yrs+Old_Rflx Neg (Neg)
[2020-05-09 11:46] LABS: Glucose Peritoneal Fluid 95 mg/dl
[2020-05-09 11:56] LABS: Albumin Peritoneal Fluid < 0.6 g/dl; LDH Peritoneal Fluid 172 U/L; Total Protein Peritoneal Fluid 1.6 g/dl
--- NOTE | 2020-05-09 12:00 | Hospitalist Progress Note ---
Date of Service May 09, 2020 Assessment & Plan (1) Metastatic malignant neoplasm of unknown primary site: Mr. Rice is a 54 yo M who presented to the ED with a 1 month history of jaundice, unexplained weight loss, and a 4 day history of progressive abdominal pain and distention, found to have extensive metastatic disease in abdomen/pelvis/thorax with distant quang spread on imaging. - primary etiology of cancer unknown at present - patient underwent paracentesis today for diagnostic and therapeutic purposes; await peritoneal fluid analysis and cytology - regardless of primary site, prognosis is thought to be extremely poor. CBC with differential showing no atypia, lymphoma remains a possibility but felt to be unlikely - palliative care consulted; patient is a candidate for hospice, intends to set up once home - *Patient does not want family to know his diagnosis at this time* - AFP pending - oncology consult pending cytology report (2) Jaundice: - obstructive pattern, likely secondary to heavy tumor burden - T bili 8.4, direct bili 7.1, alk phos 328, AST 100, LDH 403 - GI consulted; plan for EUS with FNA + ERCP and biliary stent placement tomorrow by GI - NPO after midnight (3) Hyperbilirubinemia: - T bili 8.4, direct bili 7.1 - normal mentation suggests slow gradual process over time - management as above (4) Ascites: - suspected malignant - s/p paracentesis today; 4L of fluid removed - await peritoneal fluid analysis (5) Pulmonary embolism: - initially noted on CT scan of abdomen/pelvis - CTA of chest showing no evidence of PE - heparin drip stopped (6) Hyponatremia: - Na level at 127 on admission, up to 128 - suspect secondary to hypervolemic state with liver failure and ascites - continue NaCl 1g BID tabs - repeat BMP daily (7) Esophageal varices: - Noted on A/P CT - No prior history of GI bleeds - heparin drip stopped (8) Pleural effusion, malignant: - Suspected to be malignant given malignant tumors noted on CT - no acute management (9) Portal vein thrombosis: - noted on A/P CT - initially started on IV heparin drip without bolus, however patient's INR donnell to 3.5 and drip was discontinued (10) Alcohol use disorder: - patient previously drank 1/2 pack of beer per day - he stopped drinking alcohol 1 month ago when he started getting jaundiced - no concern for withdrawal given period since last drink (11) Severe protein-calorie malnutrition: - Nutritional supplements as per customer care agent recommendations (12) Elevated INR: - 2.3 on admission, increased to 3.5 while on heparin drip - heparin drip d/c - patient administered IV vit K - recheck coags in AM (13) Hypoalbuminemia: - albumin 2.1 on admission - considering co-existent elevated INR, likely secondary to underlying liver decompensation (14) Microcytic anemia: - Hgb 10, MCV 77 - iron and ferrtin levels in the AM Diet: Reg/ NPO after midnight Dispo: Floor DVT ppx: supratherapeutic on heparin Code: DNR/DNI Admission and Anticipated Discharge Date Admission Date: May 08, 2020 Supervising Physician Co-Signing Physician Notes I personally examined the patient and verified all casillas points of history and exam, discussed case, and agree with decision making with Dr Swann. Pollo sided pain. worse after paracentesis. wants to go home kiel and be with family. d/w palliative, input appreciated. vitals noted, laying in bed somewhat ashen appearing. heent nc at mmm breathing unlabored newly dx'd diffuse metastatic CA w severe liver dysfunction and portal vein thrombosis - auto-anticoagulated so further treatment for thrombosis long-term likely far too high of risk for bleeding. for biliary stent tomorrow as well as EUS/FNA to aid in dx and management. home as quickly as possible after with outpt hospice referral per pt's wishes. trial of oxycodone for pain. otherwise as above Subjective Patient had paracentesis today. Having some pain after the procedure. Does not want any information given out to his family regarding his diagnosis. He is well aware of his situation and would like to go home tomorrow. He will then set up home hospice. Review of Systems Gastrointestinal: + abdominal pain Physical Exam Constitutional: WD/WN, vitals as above Gastrointestinal (Abdomen): Inspection/Auscultation: + abdomen distended Percussion/Palpation: + abdomen tender and + ascites Skin: + jaundice Psychiatric: A+Ox3, euthymic affect Results & Data Results & Data ([facility]) Vital Signs (Past 12 Hours) Vital Signs Temp Pulse Pulse Resp BP Pulse Ox 05/09/20 07:24 95 H 05/09/20 07:07 36.6 C 92 H 18 126/82 98 05/09/20 03:45 37.2 C 101 H 18 117/76 96 05/09/20 03:44 100 H Resident Activity Tracking Resident Involvement: Resident Care Provided Care Provided: Adult Hospital Medicine (1) Ascites Ascites type: malignant Qualified Code(s): R18.0 - Malignant ascites (2) Pulmonary embolism Pulmonary embolism type: single subsegmental (without acute cor pulmonale) Qualified Code(s): I26.93 - Single subsegmental pulmonary embolism without acute cor pulmonale
[2020-05-09] MEDS ORDERED: PHYTONADIONE 5 MG in SODIUM CHLORIDE 0.9% 50 ML IV ONE (12:30)
--- NOTE | 2020-05-09 12:31 | Gastrointestinal Consultation ---
Date of Consultation May 09, 2020 Assessment & Plan (1) Metastatic malignant neoplasm of unknown primary site: (2) Jaundice: Pt is a 54 y/o male admitted abd pain, abd distension, jaundice, unintentional weight loss, elevated LFTs. Hx of heavy ETOH use. Imaging studies and labs concerning for metastatic processes w/o known primary and likely obstructive jaundice due to tumor burden. - F/U peritoneal fluid analysis including cytology results - Hold Heparin - Give Vit K 5mg IV to reverse INR, repeat PT/INR check tomorrow AM - NPO after midnight. Plan for EUS w FNA + ERCP w biliary stent placement tomorrow in OR by Dr. Jenelle Villanueva. Procedure details, risks vs benefits have been reviewed w pt - Noted pt would like diagnosis to be with held from family. Supervising Physician Co-Signing Physician Notes Attending attestation I have seen, examined this patient, and agree with the findings and above by our mid-level provider AYESHA Enriquez, with the following additions Obstructive jaundice with large abdominal mass with likely metastasis. Concerning for pancreatic or lymphoma, less likely HCC. Stop heparin as this is likely a malignant clot Ensure INR is less than 1.5 or equal and will plan on EUS ERCP with Dr. Villanueva tomorrow History of Present Illness Reason for Consultation: Metastatic (suspect liver primary) disease Requesting Physician: Dr. Jarad Coleman Attending Physician: Dr. Bryon Davidson History of Present Illness Pt is a 54 y/o male, who presented w c/o abd pain and distension in last 4 days. He also noticed jaundice, having dark urine and light colored stools for a month, also having unintentional weight loss. Hx of heavy ETOH use (1/2 case a day). Denies tobacco or illicit drugs. On evaluation, labs notable for anemia, elevate INR w/o being on anticoagulant, hyponatremic and having elevated LFTs: Tbili 8.4, ASt 100, ALT 22, Alk phose 328. Imaging studies w CT abd/pelvis, liver u/s, CTA chest suspicious for extensive metastatic disease w lesions in liver, portal hepatis, w intrabdominal lymphadenopathy, collaterals, varices and main portal vein thrombus. Primary source is unclear. Gallbladder w stones but w/o signs of inflammation, CBD measures 1.3cm. He does also have large amt of ascites. This AM had u/s guided paracentesis w 4L ascites fluid removal by Radiology. Fluid analysis pending. Allergies Allergy/AdvReac Type Severity Reaction Status Date / Time No Known Allergies Allergy Unverified 05/08/20 13:26 Home Medications Home Medications Medication Instructions Recorded Confirmed Type No Known Home Medications 05/08/20 05/08/20 History Patient History Social History Preferred Language: German Communication Ability: Effective Retirement Actuary Required: No Beliefs That Will Affect Care: None Current Living Situation: Spouse Other Information That Helps Us Care for You: No Feels Safe at Home: Yes Safety Concerns: Feels Safe At This Time Smoking Status: Never smoker Do You Dip or Chew Tobacco: No ; Second Hand Exposure: No ; Tobacco Cessation Education Requested by Patient: No Hx Alcohol Use: Yes Hx Substance Use: No Review of Systems Review of Systems: All systems reviewed & are unremarkable except as noted in HPI & below Physical Exam Constitutional: + ill appearing cachectic appearing Eyes: + scleral abnormality (icteric) and EOM intact bilaterally ENMT: external ear and nose normal, oropharynx normal Respiratory: normal respiratory effort, lungs clear to auscultation Cardiovascular: RRR, no murmur, no edema Gastrointestinal (Abdomen): Inspection/Auscultation: + hypoactive bowel sounds Percussion/Palpation: + abdomen tender (diffuse) and abdomen soft Skin: no rashes, warm and dry + jaundice Psychiatric: A+Ox3, euthymic affect Lymphatic: no lymphedema Results & Data ([facility]) Vital Signs (Past 12 Hours) Vital Signs Temp Pulse Pulse Resp BP Pulse Ox 05/09/20 07:24 95 H 05/09/20 07:07 36.6 C 92 H 18 126/82 98 05/09/20 03:45 37.2 C 101 H 18 117/76 96 05/09/20 03:44 100 H
[2020-05-09 12:45] LABS: Appearance Peritoneal Fluid BLOODY; Basophils, Fluid 0 %; Color Peritoneal Fluid RED; Eosinophils, Fluid 0 %; Lymphocytes, Fluid 34 %; Mono,Macrophage,Mesothelial 65 %; Neutrophils, Fluid 1 %; RBC Peritoneal Fluid (A) 97000 /uL; WBC Peritoneal Fluid (A) 338 /ul (0-300)
[2020-05-09] MEDS ORDERED: IBUPROFEN 200 MG TAB PO PRN (13:07)
[2020-05-09] MEDS ORDERED: OXYCODONE HCL IR 5 MG TAB (IMMEDIATE RELEASE) PO PRN (14:58)
[2020-05-09] MEDS ORDERED: OXYCODONE HCL IR 5 MG TAB (IMMEDIATE RELEASE) PO STA (14:58)
--- NOTE | 2020-05-09 15:28 | Palliative Care Consultation ---
Date of Consultation May 09, 2020 Assessment & Plan (1) Palliative care encounter: Briefly patient is a 54-year-old male with no prior significant medical history except for heavy alcohol use who presented to the emergency room on 05/08 with a 4-day history of abdominal pain, ascites, and scleral icterus. Patient's bilirubin was noted to be 10.3, ammonia level less than 10, albumin 2.1, INR 2.3 on no AC, sodium of 127. Patient underwent CT of the abdomen which showed moderate pleural effusions, adenopathy, greater than 10 liver lesions with the largest being 2.7 x 2.5 cm, 5 splenic lesions-the largest being 3.8 cm. There is also a large mass in the kishan hepatis causing narrowing of the inferior vena cava with near occlusion of the portal vein. Also a questionable T 4 lesion. Patient understands that this is likely malignancy-stated that he would not be interested in any "poison" or radiation treatment. He is agreeable to ERCP and possible biliary stent planned for tomorrow. States he wants to go home tomorrow so he can talk to his family. Patient underwent therapeutic/diagnostic paracentesis this a.m.-4 L removed. Patient states left upper quadrant pain has increased after tap. Patient reports he was able to retire early at age 52, he is with 1 son in his mid 30s. He also has 6 grandchildren ages 2-17. Positive EtOH history-half a case a day, states he quit over a month ago when he started to notice yellowing of his eyes. Patient states he does not have a PCP and has not sought medical attention prior to admission. -Goals of care-patient's current CODE STATUS is DNR/DNI. Patient understands he is end-stage liver disease as well as a metastatic malignant neoplasm -cytology still pending Patient states adamantly that he does not want any chemo or radiation. Wants to return home as soon as possible. Patient states he had hospice services with his mother who almost a year ago in May. He cannot remember the name of the agency, but states he has paperwork at home and can look it up once he gets home. Patient agreeable to hospice referral after he is time to go home and speak with his family. Patient given information on how to contact me to obtain a hospice referral as well as a list of hospice agencies in his area. -Patient did not want his family contacted or any medical information given to them at this time. -Metastatic malignancy of unknown primary-very large mass in the kishan hepatis impinging on the inferior vena cava. Multiple mets to the liver and spleen as well as a possible T4 lesion and adenopathy. -Ascites-patient underwent paracentesis earlier today and had 4 L removed- cytology pending -Elevated INR, was 2.3 on admission, 3.5 this a.m.-Consistent with end-stage liver disease -Hyperbilirubinemia-bilirubin was 10.3 on admission, down to 8.4 on labs this a.m. Plan for ERCP and possible biliary stent placement in a.m. tomorrow. -Abdominal pain-on exam most of his pain was in the left upper quadrant-may be due to splenic mets. Patient states pain has worsened since paracentesis. Would recommend oxycodone as needed to start now as well as when discharged home. -Patient may follow-up in outpatient palliative clinic-contact information given to patient, or he may request a direct referral to hospice. Collaborating with resident physician as well as attending physician and case management. (2) Metastatic malignant neoplasm of unknown primary site: (3) Ascites: Ascites type: malignant Qualified Code(s): R18.0 - Malignant ascites (4) Elevated INR: (5) Hyperbilirubinemia: (6) Pain, abdominal, LUQ: History of Present Illness Reason for Consultation: Address goals of care Current CODE STATUS is DNR/DNI Requesting Physician: Dr. Rl Alford Attending Physician: Jarad Coleman DO History of Present Illness Briefly patient is a 54-year-old male with no prior significant medical history except for heavy alcohol use who presented to the emergency room on 05/08 with a 4-day history of abdominal pain, ascites, and scleral icterus. Patient's bilirubin was noted to be 10.3, ammonia level less than 10, albumin 2.1, INR 2.3 on no AC, sodium of 127. Patient underwent CT of the abdomen which showed moderate pleural effusions, adenopathy, greater than 10 liver lesions with the largest being 2.7 x 2.5 cm, 5 splenic lesions-the largest being 3.8 cm. There is also a large mass in the kishan hepatis causing narrowing of the inferior vena cava with near occlusion of the portal vein. Also a questionable T 4 lesion. Patient understands that this is likely malignancy-stated that he would not be interested in any "poison" or radiation treatment. He is agreeable to ERCP and possible biliary stent planned for tomorrow. States he wants to go home tomorrow so he can talk to his family. Patient underwent therapeutic/diagnostic paracentesis this a.m.-4 L removed. Patient states left upper quadrant pain has increased after tap. Patient reports he was able to retire early at age 52, he is with 1 son in his mid 30s. He also has 6 grandchildren ages 2-17. Positive EtOH history-half a case a day, states he quit over a month ago when he started to notice yellowing of his eyes. Patient states he does not have a PCP and has not sought medical attention prior to admission. Allergies Allergy/AdvReac Type Severity Reaction Status Date / Time No Known Allergies Allergy Unverified 05/08/20 13:26 Home Medications Home Medications Medication Instructions Recorded Confirmed Type No Known Home Medications 05/08/20 05/08/20 History Patient History Social History Preferred Language: Sierra Leonean Communication Ability: Effective [employer] Required: No Beliefs That Will Affect Care: None Current Living Situation: Spouse Other Information That Helps Us Care for You: No Feels Safe at Home: Yes Safety Concerns: Feels Safe At This Time Smoking Status: Never smoker Do You Dip or Chew Tobacco: No ; Second Hand Exposure: No ; Tobacco Cessation Education Requested by Patient: No Hx Alcohol Use: Yes Hx Substance Use: No Review of Systems Review of Systems: Patient denies fever, chills, chest pain, shortness of breath Positive for icterus, jaundice, left upper quadrant pain, increased weakness and fatigue. Physical Exam Physical Exam: PE: Patient thin and cachectic, occasional sharp pains in the left upper quadrant during exam HEENT: EOMI, scleral icterus, hearing within normal limits Respirations: Unlabored, diminished at bases CV: Tachycardic, no lower extremity edema Abdomen: Distended tender at the rib line left upper quadrant Extremities: Full range of motion, slow ambulation Neuro: Alert and oriented x4 Results & Data Vital Signs (Past 12 Hours) Vital Signs Temp Pulse Pulse Resp BP Pulse Ox 05/09/20 15:15 98.2 F 104 H 18 110/75 99 05/09/20 07:24 95 H 05/09/20 07:07 97.9 F 92 H 18 126/82 98 05/09/20 03:45 99.0 F 101 H 18 117/76 96 05/09/20 03:44 100 H PG Care Time/CCT Total # of Minutes Spent Total Time Spent with Patient: Total time spent 70 minutes with greater than 50% of the time spent at bedside discussing patient's current condition, wishes regarding treatment as well as goals of care. Collaborated with resident physician as well as attending physician and case management. Coding Level of Care Code 70243 Inpt Consult Level 3 Diagnoses Palliative care encounter Z51.5 Metastatic malignant neoplasm of unknown primary site C79.9; C80.1 Ascites R18.0 Ascites type: malignant Elevated INR R79.1 Hyperbilirubinemia E80.6 Pain, abdominal, LUQ R10.12 Time Spent (min) 70
--- NOTE | 2020-05-09 15:30 | Anesthesiology Consultation ---
Date of Service May 09, 2020 History Surgery Operation Date: 05/10/20 11:00 Proposed Procedures p Endoscopic Retrograde Cholangiopancreatogram - Jenelle Villanueva s Possible Endoscopic Ultrasonography Upper - Jenelle Villanueva Height/Weight Height: 5 ft 11 in Weight: 65.1 kg Allergies Allergy/AdvReac Type Severity Reaction Status Date / Time No Known Allergies Allergy Unverified 05/08/20 13:26 Medications Home Medications Medication Instructions Recorded Confirmed Last Taken No Known Home Medications 05/08/20 05/08/20 Unknown Active Medications Generic Name Dose Route Start Last Admin Trade Name Freq PRN Reason Stop Dose Admin Heparin Sodium/Dextrose 25,000 units in 500 mls @ 21 mls/hr 05/08/20 18:15 05/09/20 12:20 Heparin Sodium/Dextrose IV 06/07/20 18:14 0 units/hr .[id number] RISHABH 0 mls/hr Titration Protocol 1,050 UNITS/HR Ioversol 92 ml 05/09/20 06:40 05/09/20 06:40 Optiray 320 125ml IV 05/13/20 06:39 92 ml ONCE PRN Administration Interaction Checking Sodium Chloride 1 gm 05/08/20 21:00 05/09/20 09:54 Sodium Chloride PO 06/07/20 20:59 1 gm BID RISHABH Administration Social History Smoking Status: Never smoker Do You Dip or Chew Tobacco: No Hx Alcohol Use: Yes alcohol intake frequency: other Alcohol Intake Frequency Comment: Last drink was march 17 Hx Substance Use: No Physical Exam Vital Signs Last Vital Signs Temp 36.8 C 05/09/20 15:15 Pulse 104 H 05/09/20 15:15 Resp 18 05/09/20 15:15 BP 110/75 05/09/20 15:15 Pulse Ox 99 05/09/20 15:15 Testing Laboratory Results 05/09/20 02:31 05/09/20 02:31 PT 34.9 Seconds (9.0-12.0) H 05/09/20 02:31 INR 3.5 (0.9-1.1) H 05/09/20 02:31 APTT 52.4 Seconds (21.0-31.0) H* 05/09/20 06:04 Urine Color Brown 05/09/20 04:10 Urine Appearance Turbid (Clear) A 05/09/20 04:10 Urine pH (4.5-7.5) 05/09/20 04:10 Ur Specific [place] 1.054 (1.000-1.060) 05/09/20 04:10 Urine Protein Positive (Negative) H 05/09/20 04:10 Urine Glucose (UA) (Negative) 05/09/20 04:10 Urine Ketones (Negative) 05/09/20 04:10 Urine Nitrite (Negative) 05/09/20 04:10 Ur Leukocyte Esterase (Negative) 05/09/20 04:10 Urine RBC 0-4 /hpf (0-4) 05/09/20 04:10 Urine WBC 5-10 /hpf (0-5) H 05/09/20 04:10 Ur Epithelial Cells 0-5 /lpf (0-5) 05/09/20 04:10 05/09/20 10:50 Gram Stain - Final Peritoneal Fluid
--- NOTE | 2020-05-09 16:17 | Billing Data ---
Date of Service May 09, 2020 Coding Level of Care Code 07797 Subseq Hosp Care Lvl 3
[2020-05-09] MEDS: FAMOTIDINE 20 MG TAB PO SCH (20:04)
[2020-05-09] MEDS: OXYCODONE HCL IR 5 MG TAB (IMMEDIATE RELEASE) PO PRN ×2 (20:05→23:52)
[2020-05-09 21:23] LABS: INR 1.5 (0.9-1.1); Prothrombin Time 15.3 Seconds (9.0-12.0)
--- NOTE | 2020-05-10 07:10 | Discharge Summary ---
Date of Service May 10, 2020 Admission HPI Per Admitting Provider Oscar Rice is an unfortunate 54-year-old male who usually does not seek medical attention. He presents to the ER with 4 days of abdominal pain with abdominal distention. He has a significant alcohol history drinking 0.5 cases of beer per day. He noticed he was becoming significantly jaundiced 1 month ago and stopped drinking alcohol. He noticed a mild improvement with his jaundice since stopping alcohol. He denies any change in his bowels, no melena, red blood in stools, nausea or vomiting. No history of hematemesis. He has noticed significant unintentional weight loss over the last 2 years. He has a large number of moles all over his body with a few removed in the past which he reports came back benign. He has not noticed any in particular getting larger. He does notice his skin becomes significantly hyperpigmented in the summer months but it resolves to his usual pale skin in the winter. This is been occurring over the last 2 years in addition. He has noticed shortness of breath on exertion getting increasingly worse over the last year. No chest pain. His abdominal pain is mild but did get a little bit worse on drinking oral contrast in the ER. Associated generalized weakness getting worse over the last month. No change in his vision, hearing, speech. Admission Exam Per Admitting Provider Constitutional: well developed and + cachectic; + not well nourished and no acute distress Eyes: PERRL and EOM intact bilaterally; sclerae not anicteric ENMT: Ears: no external ear abnormality Nose: no external nose abnormality Mouth: + dry oral mucous membranes Neck: trachea midline Respiratory: normal respiratory effort, lungs clear to auscultation Cardiovascular: Rate/Rhythm: regular rate and regular rhythm Heart Sounds: no murmur Vessels: no JVD Extremities: normal capillary refill; no calf tenderness and no pedal edema Gastrointestinal (Abdomen): Inspection/Auscultation: + abdomen distended and normal bowel sounds Percussion/Palpation: + abdomen tender (Generalized mild, worse in the right upper quadrant), abdomen soft and + hepatomegaly; no guarding and abdomen not rigid Musculoskeletal: Head/Neck/Chest: normocephalic and head atraumatic Extremities: + muscle atrophy Skin: + abnormal skin elasticity Confluent skin hyperpigmentation over sun exposed areas on back, bilateral arms and face, confluent with well demarcated areas of pale skin. Neurologic: moves all extremities and awake; no focal motor deficits and not confused Speech / Cognition: normal speech Motor/Sensory: no tremor, no pronator drift, no asterixis and no sensory deficit Coordination: normal bsrkwe-cd-gkyg test and normal yext-zx-hzeg test Psychiatric: Orientation: alert and oriented x 3 Affect: + flat affect Genitourinary: no CVA tenderness Principal Diagnosis Metastatic Disease Discharge Exam Constitutional WD/WN, vitals as above Eyes sclerae not anicteric ENMT external ear and nose normal, oropharynx normal Neck normal visual inspection and trachea midline Gastrointestinal (Abdomen) Inspection/Auscultation: + abdomen distended Percussion/Palpation: + abdomen tender and + ascites Skin + jaundice + diffuse hyperpigmentation Psychiatric A+Ox3, euthymic affect Discharge Data Allergies Allergy/AdvReac Type Severity Reaction Status Date / Time No Known Allergies Allergy Unverified 05/08/20 13:26 Consultations 05/08/20 16:49 ED Decision to Admit Stat 05/08/20 20:17 Consult Gastroenterology Routine Consult Palliative Care Routine Procedures Performed Operation Date: 05/10/20 11:00 <No data on this case meets the specified criteria> Ordered Studies 05/08/20 13:06 CT abd pelvis oral and IV con Stat 05/08/20 18:08 US liver Routine 05/09/20 07:00 CT angio chest PE protocol Routine US paracentesis abd w/image Routine 05/10/20 FL fluoroscopy <1hr Routine 05/10/20 11:00 FL ERCP biliary ductal Routine Hospital Course (1) Metastatic malignant neoplasm of unknown primary site: Mr. Rice is a 54 yo M who presented to the ED with a 1 month history of jaundice, unexplained weight loss, and a 4 day history of progressive abdominal pain and distention, found to have extensive metastatic disease in abdomen/pelvis/thorax with distant quang spread on CT imaging. Primary etiology of cancer was not determined by the time of discharge. Patient sent home with hospice services. Patient underwent paracentesis for diagnostic and therapeutic purposes. Four liters of bloody peritoneal fluid were removed; analysis showed LDH ratio of 0.4 and a SAAG of 1.2. Portal hypertension is considered to be cause of his ascites, although extensive tumor burden is likely contributing to overall hepatic congestion and dysfunction. Peritoneal fluid cytology is pending. Regardless of primary site, prognosis is thought to be extremely poor; although such information may be of use to his children for cancer surveillance. His CBC with differential showed no atypia, however lymphoma remains as the only optimistic possibility. AFP pending at the time of discharge. Oncology was not consulted formally during hospital stay as cancer origin was not known by the time of discharge. Palliative team was consulted who met with patient and established goals of care. Patient with set up home hospice services upon discharge. In the interim, he was provided with prescription narcotics for pain control. (2) Jaundice: Patient was jaundiced on physical exam, the pattern was obstructive. Source of obstruction likely secondary to heavy tumor burden in liver. T bili 8.4, direct bili 7.1, alk phos 328, AST 100, LDH 403. Gastroenterology performed an EUS with fine needle aspiration + ERCP with biliary stent placement on day of discharge. The intent of this procedure was both diagnostic (FNA) and therapeutic (ie stent placement with help reduce future complications of hyperbilirubinemia). (3) Hyperbilirubinemia: (4) Ascites: Status post paracentesis with removal of 4 liters. Peritoneal fluid analysis as above. Bloody fluid suggestive of metastatic etiology. (5) Pulmonary embolism: Initially, this finding was suspected on view of lungs from CT scan of abdomen/pelvis. Patient was started on a heparin drip, however drip was stopped when dedicated CTA of Chest showed no evidence of PE. (6) Hyponatremia: - Na level at 127 on admission, increased to 128 by the day of discharge. - suspect secondary to hypervolemic state with liver failure and ascites - continue NaCl 1g BID tabs (7) Esophageal varices: Noted on cat scan of abdomen and pelvis. No prior history of GI bleeds (8) Pleural effusion, malignant: - Suspected to be malignant given malignant tumors noted on CT - no acute management (9) Portal vein thrombosis: Noted on A/P CT. Patient initially started on IV heparin drip without bolus, however patient's INR donnell to 3.5 and drip was discontinued. (10) Alcohol use disorder: - patient previously drank 1/2 pack of beer per day - he stopped drinking alcohol 1 month ago when he started getting jaundiced - this history explains elevated pain medication requirement. Will discharge patient with a roughly 50/50 basal/bolus narcotic regimen. (11) Severe protein-calorie malnutrition: - Nutritional supplements as per fire production operator recommendations (12) Elevated INR: - 2.3 on admission, increased to 3.5 while on heparin drip. Drip was since discontinued and IV vitamin K was administered. INR improved to 1.2 by discharge. (13) Hypoalbuminemia: - albumin 2.1 on admission - considering co-existent elevated INR, likely secondary to underlying liver d ecompensation (14) Microcytic anemia: - Hgb 10, MCV 77 - iron normal at 57, ferritin level elevated, TIBC low Total Time Total Time Spent Total Time Spent (In Minutes): <30 Discharge Plan Discharge Items Patient Disposition: Hospice - Home Reason For Visit: METASTATIC SUSPECTED LIVER CANCER Discharge Diagnosis: Metastatic Cancer Condition on Discharge: Serious Activity: Resume your previous activity Non-emergency contact: Oncologist Call non-emergency contact if: your pain is not controlled Follow-up/Referrals: Jenelle Villanueva [Physician] - Ela Stern MD [Physician] - 05/15/20 1:00 pm (Please, follow up with Dr. Stern on FridayMay 15 at 1:00 pm. *The office is located in the rear of this hospital. You will park BEHIND the hospital in [address] and enter via [facility]. If you have any questions or need to reschedule the appointment, call the office at [phone]. ) Diet: Regular Addtl Attending Provider Instructions: You were hospitalized at [facility] for evaluation of abdomin al pain and swelling. A cat scan of you abdomen and pelvis showed extensive metastasis, or spread, of a presumed cancer. The site in your body where the cancer originated was not determined by the time of your discharge. Biopsies of abdominal fluid were obtained during your hospital stay and are still pending; you will be contacted with the results. Hopefully, this will tell us the primary cancer type (eg colon, liver, etc). Knowing the specific, or primary cancer type can be useful information for your blood relatives (eg. children), as they will be able to closely surveilled for this cancer type in the future by their doctors. Regardless of the primary site of the cancer, your overall prognosis is unfortunately presumed to be poor. Palliative care (Dr. Ela Stern) was consulted and reviewed options of care with you, and you voiced a preference to have care focused on comfort. You elected to go home and set up home hospice services. In the meantime, we provided you with a prescription of narcotic pain medication to keep you comfortable. Likely due to the cancer, the function of your liver was found to be compromised. Additionally, the "pipes" connecting your gallbladder and liver were compressed, likely from tumor. This is the reason your skin is yellow and your abdomen is swollen. Gastroenterology was consulted during your hospital stay and removed 4 liters of fluid off your abdomen in an effort to make you feel more comfortable. Cells from this fluid collection are also being analyzed, which may help us figure out the primary cancer type. Additionally, the GI doctors placed a stent in your bile duct (the pipe between the liver and gallbladder) to prop it open, which may help reduce the yellowing of your skin and also lower the risk of future complications (and associated discomfort) from your failing liver. As it relates to this procedure, we need to treat for 5 days with an antibiotic (Cipro) twice a day - next dose should be at bedtime tonight. Likewise, the GI doctor performing the procedure asked that you avoid anti-inflammatories (ibuprofen, motrin, alleve, naproxen, etc) for the next week to allow proper healing from the stenting. We are sorry to make this diagnosis and wish you find comfort at home with your family. Pending Studies at Discharge: Yes (Cytology ) Stand-Alone Forms: My [facility] Medications and DC Order Prescriptions: New ciprofloxacin HCl 500 mg Tablet 500 mg PO BID Qty: 10 RF: 0 oxycodone 5 mg Tablet 10 mg PO Q4H PRN (Reason: pain) Qty: 30 RF: 0 No Action No Known Home Medications RF: 0 Discharge Orders: Discharge Order (Routine); Ordered 05/10/20 Ordered By: Jarad Coleman Admission Data Admit Date/Time: 05/08/20 17:14 Attending Provider: Jarad Coleman Admit Provider: Rl Alford Primary Care Provider: PCP,NO Other Providers: Rl Alford ; Antonio Martinez ; Ela Stern Supervising Physician Co-Signing Physician Notes I personally examined the patient and verified all casillas points of history and exam, discussed case, and agree with decision making with Dr Swann. feeling better post procedure. still very much wants to go home. vitals noted nad heent nc at mmm breathing unlabored no accessory muscles good effort skin no rashes no pallor, diffuse icterus and ashen appearance metastatic CA/liver dysfunction from cancer - primary pending based on path from today's procedure. negative path on paracentesis most likely due to fluid being there from portal HTN from liver disease (mets, etc) rather than direct peritoneal carcinomatosis. strongly desires to go home and understands current situation. oxycodone prn pain - can escalate if needed and has palliative f/u scheduled. stable for home otherwise as above. Resident Activity Tracking Resident Involvement: Resident Care Provided Care Provided: Adult Hospital Medicine
[2020-05-10 08:16] LABS: Basophils # (auto) 0.01 K/uL (0-0.2); Basophils % (auto) 0.1 %; Eosinophils # (auto) 0.06 K/uL (0-0.5); Eosinophils % (auto) 0.4 %; Hematocrit (blood only) 26.2 % (42-52); Hemoglobin 8.8 g/dL (14.0-18.0); Immature Granulocytes # (auto) 0.04 K/uL (0.00-0.02); Immature Granulocytes % (auto) 0.3 %; Lymphocytes # (auto) 1.56 K/uL (1.2-3.4); Lymphocytes % (auto) 11.7 %; Mean Corpuscular Hgb Conc 33.6 g/dL (32-36); Mean Corpuscular Volume 77.3 fL (80-100); Mean Platelet Volume 9.4 fL (7.4-10.4); Monocytes # (auto) 1.67 K/uL (0.11-0.59); Monocytes % (auto) 12.5 %; Neutrophils # (auto) 10.05 K/uL (1.4-6.5); Platelet Count 396 K/uL (130-400); RDW Coefficient of Variation 15.8 % (11.5-14.5); RDW Standard Deviation 44.5 fL (36.4-46.3); Red Blood Count 3.39 M/uL (4.7-6.1); White Blood Count 13.39 K/uL (4.8-10.8)
[2020-05-10 08:26] LABS: INR 1.2 (0.9-1.1); Prothrombin Time 12.7 Seconds (9.0-12.0)
[2020-05-10 08:51] LABS: Albumin Level 1.6 gm/dl (3.4-5.0); BUN Creatinine Ratio 11.9 (10-20); Calcium 7.9 mg/dl (8.5-10.1); Creatinine Clr Calc Pharmacy 62.3 ml/min; Est GFR (Non-African American) 70.7; Magnesium 2.2 mg/dl (1.8-2.4)
[2020-05-10] MEDS: INDOMETHACIN 50 MG SUPP PR SCH ×2 (08:54→12:40)
[2020-05-10] MEDS: SODIUM CHLORIDE 1 GM TABLET PO SCH ×2 (08:55→09:03)
[2020-05-10] MEDS: FAMOTIDINE 20 MG TAB PO SCH (08:55)
[2020-05-10] MEDS: HYDROmorphone INJ 0.5 MG/0.5 ML SYR IV STA ×2 (09:00→09:03)
[2020-05-10 09:08] LABS: Albumin Globulin Ratio 0.3 (0.9-2); Bilirubin,Total 10.4 mg/dl (0.2-1); Globulin 4.8 gm/dl (2.5-4.0); Phosphorus 4.7 mg/dl (2.5-4.9); Total Protein 6.4 gm/dl (6.4-8.2)
[2020-05-10 09:10] LABS: Hepatitis B Surface Ab Quant < 3.10 mIU/mL (>or=10mIU/mL Immune); Hepatitis B Surface Antibody Non-Immune
--- NOTE | 2020-05-10 09:37 | Gastroenterology Progress Note ---
Date of Service May 10, 2020 Assessment & Plan (1) Metastatic malignant neoplasm of unknown primary site: (2) Jaundice: Pt is a 54 y/o male admitted abd pain, abd distension, jaundice, unintentional weight loss, elevated LFTs. Hx of heavy ETOH use. Imaging studies and labs concerning for metastatic processes w/o known primary and likely obstructive jaundice due to tumor burden. - Keep NPO for EUS w FNA + ERCP w biliary stent placement today in OR by Dr. Jenelle Villanueva. Procedure details, risks vs benefits have been reviewed w pt - Noted pt would like diagnosis to be with held from family. - GI will give further recs after EUS/ERCP is completed Admission and Anticipated Discharge Date Admission Date: May 08, 2020 Supervising Physician Co-Signing Physician Notes I saw and evaluated the patient. He presents with weight loss and was found to have elevation of his liver enzymes and a very large mass which appears to be arising from the pancreas. Unfortunately it appears that he may have liver metastasis as well. Plan egd /eus with ercp today Subjective No acute events overnight. Pt still reports having LUQ abd tenderness. Denies n/v, fever, chills. Review of Systems Review of Systems: All systems reviewed & are unremarkable except as noted in HPI & below Physical Exam Constitutional: + ill appearing Eyes: + scleral abnormality (icteric) and EOM intact bilaterally ENMT: external ear and nose normal, oropharynx normal Respiratory: normal respiratory effort, lungs clear to auscultation Cardiovascular: RRR, no murmur, no edema Gastrointestinal (Abdomen): Inspection/Auscultation: + hypoactive bowel sounds Percussion/Palpation: + abdomen tender (diffuse) and abdomen soft Skin: no rashes, warm and dry + jaundice Psychiatric: A+Ox3, euthymic affect Lymphatic: no lymphedema Results & Data ([facility]) Vital Signs (Past 12 Hours) Vital Signs Temp Pulse Pulse Resp BP Pulse Ox 05/10/20 07:26 36.7 C 99 H 18 109/71 96 05/10/20 07:25 100 H 05/10/20 03:24 36.6 C 105 H 19 114/74 95 05/10/20 00:26 110 H 05/09/20 23:11 37 C 108 H 19 106/73 97
[2020-05-10 10:52] LABS: Hepatitis A Antibody IgM NON-REACTIVE (NON-REACTIVE); Hepatitis B Core Antibody IgM NON-REACTIVE (NON-REACTIVE)
--- NOTE | 2020-05-10 10:55 | History & Physical Bridge Note ---
Date of Service May 10, 2020 History & Physical Bridge Note I have examined the patient, reviewed the History & Physical and in the interval since the performance of the History & Physical I have noted the following changes of clinical significance: no changes noted. Planning to perform upper endoscopy endoscopic ultrasound and possible ERCP today. We have discussed the risks and benefits of the procedures to include bleeding, infection, perforation, pain, insufficient cellularity and inability to cannulate the biliary tree.
[2020-05-10] MEDS ORDERED: fentaNYL citrate 100 MCG/2 ML VIAL ONE (10:57)
[2020-05-10] MEDS ORDERED: MIDAZOLAM HCL 1 MG/ML 2ML VIAL ONE (10:57)
[2020-05-10] MEDS ORDERED: PROPOFOL IV EMULSION 10 MG/ML 20 ML VIAL IV ONE ×3 (10:57→12:16)
--- NOTE | 2020-05-10 10:58 | Anesthesiology Consultation ---
Date of Service May 10, 2020 Assessment & Plan ASA ASA4 Proposed Anesthesia Anesthesia Type: General Risk / Benefits Reviewed With: PT / POA / Parent / Guardian, Accepts Plan and Informed Consent Obtained History Surgery Operation Date: 05/10/20 11:00 Proposed Procedures p Endoscopic Retrograde Cholangiopancreatogram - Jenelle Villanueva s Possible Endoscopic Ultrasonography Upper - Jenelle Villanueva Height/Weight Height: 5 ft 11 in Weight: 61.4 kg Allergies Allergy/AdvReac Type Severity Reaction Status Date / Time No Known Allergies Allergy Unverified 05/08/20 13:26 Medications Home Medications Medication Instructions Recorded Confirmed Last Taken No Known Home Medications 05/08/20 05/08/20 Unknown Active Medications Generic Name Dose Route Start Last Admin Trade Name Freq PRN Reason Stop Dose Admin Famotidine 20 mg 05/09/20 21:00 05/10/20 08:55 Pepcid PO 06/08/20 20:59 20 mg BID RISHABH Administration Heparin Sodium/Dextrose 25,000 units in 500 mls @ 21 mls/hr 05/08/20 18:15 05/09/20 12:20 Heparin Sodium/Dextrose IV 06/07/20 18:14 0 units/hr .[id number] RISHABH 0 mls/hr Titration Protocol 1,050 UNITS/HR Ioversol 92 ml 05/09/20 06:40 05/09/20 06:40 Optiray 320 125ml IV 05/13/20 06:39 92 ml ONCE PRN Administration Interaction Checking Oxycodone HCl 10 mg 05/09/20 19:28 05/09/20 23:52 Roxicodone Immediate Rel PO 05/23/20 14:57 10 mg Q4H PRN Administration Pain Sodium Chloride 1 gm 05/08/20 21:00 05/10/20 09:03 Sodium Chloride PO 06/07/20 20:59 Not Given BID RISHABH NPO Date Last Intake of Fluids: 05/09/20 Time Last Intake of Fluids: 17:00 Date Last Intake of Solids: 05/09/20 Time Last Intake of Solids: 17:00 Exercise / Class Metabolic Activity II 4-5 Yardwork/Stairs/Walk up hill Past Anesthesia History No Hx of Anesthesia Complications and No Family Hx of Anesthesia Complications History of PONV No Hx of PONV and No Hx of Motion Sickness Social History Smoking Status: Never smoker Do You Dip or Chew Tobacco: No Hx Alcohol Use: Yes alcohol intake frequency: other Alcohol Intake Frequency Comment: Last drink was march 17 Hx Substance Use: No Review of Systems denies fever/cough/ colds/ chest pain/ SOB/ BAMBI Constitutional: no fever and no chills Respiratory: no cough and no dyspnea denies BAMBI Cardiovascular: no chest pain and no dyspnea on exertion Physical Exam Vital Signs Last Vital Signs Temp 36.8 C 05/10/20 10:54 Pulse 102 H 05/10/20 10:54 Resp 16 05/10/20 10:54 BP 110/69 05/10/20 10:54 Pulse Ox 94 05/10/20 10:54 ENMT Mouth: no TMJ abnormality and no dentition abnormality Thyromental Distance: > or= 3.5 Finger Breadths Mallampati Class: II Neck neck extension not limited Respiratory normal respiratory effort; no respiratory distress Auscultation: lungs clear to auscultation bilaterally Cardiovascular Rate/Rhythm: regular rate and regular rhythm Neurologic moves all extremities Psychiatric Orientation: alert and oriented x 3 Testing Laboratory Results 05/10/20 07:52 05/10/20 07:52 PT 12.7 Seconds (9.0-12.0) H 05/10/20 07:52 INR 1.2 (0.9-1.1) H 05/10/20 07:52 APTT 52.4 Seconds (21.0-31.0) H* 05/09/20 06:04 Urine Color Brown 05/09/20 04:10 Urine Appearance Turbid (Clear) A 05/09/20 04:10 Urine pH (4.5-7.5) 05/09/20 04:10 Ur Specific [place] 1.054 (1.000-1.060) 05/09/20 04:10 Urine Protein Positive (Negative) H 05/09/20 04:10 Urine Glucose (UA) (Negative) 05/09/20 04:10 Urine Ketones (Negative) 05/09/20 04:10 Urine Nitrite (Negative) 05/09/20 04:10 Ur Leukocyte Esterase (Negative) 05/09/20 04:10 Urine RBC 0-4 /hpf (0-4) 05/09/20 04:10 Urine WBC 5-10 /hpf (0-5) H 05/09/20 04:10 Ur Epithelial Cells 0-5 /lpf (0-5) 05/09/20 04:10 05/09/20 10:50 Gram Stain - Final Peritoneal Fluid
[2020-05-10] MEDS ORDERED: LIDOCAINE HCL 2% 2 ML VIAL/AMP(20MG/ML) INFIL ONE (11:14)
[2020-05-10] MEDS ORDERED: ROCURONIUM BROMIDE 10 MG/ML 5 ML VIAL IV ONE (11:14)
[2020-05-10] MEDS ORDERED: CIPROFLOXACIN / D5W 400 MG/200 ML BAG IV SCH (11:30)
--- NOTE | 2020-05-10 11:41 | GI REPORT ---
Patient Name: Oscar Rice Procedure Date: 05/10/2020 11:26 AM Date of : 1965 Admit Type: Inpatient Age: 54 Gender: Male Attending MD: Jenelle Villanueva DO Procedure: Upper GI endoscopy Providers: Jenelle Villanueva DO Referring MD: Bryon Damon MD Indications: Epigastric abdominal pain, Abnormal CT of the GI tract Medicines: Monitored Anesthesia Care Complications: No immediate complications. Estimated blood loss: Minimal. Estimated Blood Loss: Estimated blood loss was minimal. Procedure: Pre-Anesthesia Assessment: - Prior to the procedure, a History and Physical was performed, and patient medications, allergies and sensitivities were reviewed. The patient's tolerance of previous anesthesia was reviewed. - The risks and benefits of the procedure and the sedation options and risks were discussed with the patient. All questions were answered and informed consent was obtained. - Patient identification and proposed procedure were verified prior to the procedure by the physician, the nurse and the product safety head. The procedure was verified in the procedure room. - Pre-procedure physical examination revealed no contraindications to sedation. - ASA Grade Assessment: IV - A patient with severe systemic disease that is a constant threat to life. - After reviewing the risks and benefits, the patient was deemed in satisfactory condition to undergo the procedure. - The anesthesia plan was to use monitored anesthesia care (MAC). - Immediately prior to administration of medications, the patient was re-assessed for adequacy to receive sedatives. - The heart rate, respiratory rate, oxygen saturations, blood pressure, adequacy of pulmonary ventilation, and response to care were monitored throughout the procedure. - The physical status of the patient was re-assessed after the procedure. After obtaining informed consent, the endoscope was passed under direct vision. Throughout the procedure, the patient's blood pressure, pulse, and oxygen saturations were monitored continuously. The Endoscope was introduced through the mouth, and advanced to the third part of duodenum. The upper GI endoscopy was accomplished without difficulty. The patient tolerated the procedure well. Findings: The upper third of the esophagus was normal. LA Grade B (one or more mucosal breaks greater than 5 mm, not extending between the tops of two mucosal folds) esophagitis with no bleeding was found in the middle third and lower of the esophagus. The Z-line was irregular and was found 41 cm from the incisors. Diffuse mild inflammation characterized by congestion (edema), erythema and granularity was found in the stomach. Biopsies were taken with a cold forceps for histology. The pathology specimen was placed into Bottle A. Estimated blood loss was minimal. The examined duodenum was normal. Impression: - LA Grade B reflux esophagitis. - Z-line irregular, 41 cm from the incisors. - Gastritis. Biopsied. - Normal examined duodenum. Recommendation: - Perform an upper endoscopic ultrasound (UEUS) today. - Await pathology results. - Use Prilosec (omeprazole) 40 mg PO daily. Jenelle Villanueva D.O. Jenelle Villanueva, 05/10/2020 11:41:43 AM This report has been signed electronically. Note Initiated On: 05/10/2020 11:26 AM Number of Addenda: 0 I attest to the content of the Intraoperative Record and orders documented therein, exceptions below {[id number]}
--- NOTE | 2020-05-10 12:40 | Post Operative Brief Note ---
Immediate Post Op Note v1 Date of Surgery May 10, 2020 Pre & Post Diagnosis Operation Date: 05/10/20 11:00 Pre-Op Diagnosis: pancreatic mass & obstructive jaundice Post-Op Diagnosis: pancreatic cancer I identified the patient and participated in the time-out.: Yes Procedure Operation Date: 05/10/20 11:00 Actual Procedures p Esophagogastroduodenoscopy; Endoscopic Retrograde Cholangiopancreatogram with sphincterotomy & stent placement(Not Applicable) - Jenelle Villanueva s Endoscopic Ultrasonography Upper(Not Applicable) - Jenelle Villanueva Surgeon Jenelle Villanueva Cpr Ambulance Driver none Estimated Blood Loss 0 Findings Consistent with Post-Op Diagnosis
--- NOTE | 2020-05-10 12:47 | GI REPORT ---
Patient Name: Oscar Rice Procedure Date: 05/10/2020 12:06 PM Date of : 1965 Admit Type: Inpatient Age: 54 Gender: Male Attending MD: Jenelle Villanueva DO Procedure: ERCP Providers: Jenelle Villanueva DO Referring MD: Bryon Damon MD Indications: Jaundice, Tumor of the head of pancreas Medicines: Monitored Anesthesia Care Complications: No immediate complications. Estimated blood loss: Minimal. Estimated Blood Loss: Estimated blood loss was minimal. Procedure: Pre-Anesthesia Assessment: - Prior to the procedure, a History and Physical was performed, and patient medications, allergies and sensitivities were reviewed. The patient's tolerance of previous anesthesia was reviewed. - The risks and benefits of the procedure and the sedation options and risks were discussed with the patient. All questions were answered and informed consent was obtained. - Patient identification and proposed procedure were verified prior to the procedure by the physician, the nurse and the bonded structures repairer. The procedure was verified in the procedure room. - Pre-procedure physical examination revealed no contraindications to sedation. - ASA Grade Assessment: IV - A patient with severe systemic disease that is a constant threat to life. - After reviewing the risks and benefits, the patient was deemed in satisfactory condition to undergo the procedure. - The anesthesia plan was to use monitored anesthesia care (MAC). - Immediately prior to administration of medications, the patient was re-assessed for adequacy to receive sedatives. - The heart rate, respiratory rate, oxygen saturations, blood pressure, adequacy of pulmonary ventilation, and response to care were monitored throughout the procedure. - The physical status of the patient was re-assessed after the procedure. After obtaining informed consent, the scope was passed under direct vision. Throughout the procedure, the patient's blood pressure, pulse, and oxygen saturations were monitored continuously. The scope was introduced through the mouth, and advanced to the duodenum and used to inject contrast into the bile duct. The ERCP was accomplished without difficulty. The patient tolerated the procedure well. Findings: The broom handle dipper film was normal. The esophagus was successfully intubated under direct vision without detailed examination of the pharynx, larynx, and associated structures, and upper GI tract. The upper GI tract was grossly normal. The major papilla was normal. The bile duct was deeply cannulated with the short-nosed traction sphincterotome and guidewire. Contrast was injected. I personally interpreted the bile duct images. Contrast extended to the hepatic ducts. The lower third of the main bile duct contained filling defect(s) thought to be a stone and sludge. The middle third of the main bile duct contained a single segmental stenosis 30 mm in length. Biliary sphincterotomy was made with a monofilament Fusion OMNI sphincterotome using ERBE electrocautery. There was no post-sphincterotomy bleeding. To discover objects, the biliary tree was swept with a 15 mm balloon starting at the bifurcation. Two stones were removed. No stones remained. One 10 Fr by 8 cm metal stent was placed 8 cm into the common bile duct. Bile and sludge flowed through the stent. The stent was in good position. Indomethacin 100 mg was given via suppository to decrease the risk of post-ERCP pancreatitis (PEP). The endoscope was withdrawn from the patient. The total fluoroscopy exposure time was 2 minutes and 51 seconds. Impression: - The major papilla appeared normal. - A filling defect consistent with a stone and sludge was seen on the cholangiogram. - A single segmental biliary stricture was found in the middle third of the main bile duct. The stricture was malignant appearing. - Choledocholithiasis was found. Complete removal was accomplished by biliary sphincterotomy and balloon extraction. - A biliary sphincterotomy was performed. - The biliary tree was swept. - One metal stent was placed into the common bile duct. - Indomethacin given to decrease risk of post-ERCP pancreatitis. Recommendation: - Avoid aspirin and nonsteroidal anti-inflammatory medicines for 1 week. - Clear liquid diet today. - Cipro (ciprofloxacin) 500 mg PO BID for 5 days. - Observe patient's clinical course following today's ERCP with therapeutic intervention. Jenelle Villanueva D.O. Jenelle Villanueva, 05/10/2020 12:46:26 PM This report has been signed electronically. Note Initiated On: 05/10/2020 12:06 PM Number of Addenda: 0 I attest to the content of the Intraoperative Record and orders documented therein, exceptions below {[id number]}
--- NOTE | 2020-05-10 12:53 | GI REPORT ---
Patient Name: Oscar Rice Procedure Date: 05/10/2020 11:29 AM Date of : 1965 Admit Type: Inpatient Age: 54 Gender: Male Attending MD: Jenelle Villanueva DO Procedure: Upper EUS Providers: Jenelle Villanueva DO Referring MD: Bryon Damon MD Indications: Suspected mass in liver on CT scan, Suspected mass in pancreas on CT scan Medicines: Monitored Anesthesia Care Complications: No immediate complications. Estimated blood loss: Minimal. Estimated Blood Loss: Estimated blood loss was minimal. Procedure: Pre-Anesthesia Assessment: - Prior to the procedure, a History and Physical was performed, and patient medications, allergies and sensitivities were reviewed. The patient's tolerance of previous anesthesia was reviewed. - The risks and benefits of the procedure and the sedation options and risks were discussed with the patient. All questions were answered and informed consent was obtained. - Patient identification and proposed procedure were verified prior to the procedure by the physician, the nurse and the bicycle subassembler. The procedure was verified in the procedure room. - Pre-procedure physical examination revealed no contraindications to sedation. - ASA Grade Assessment: IV - A patient with severe systemic disease that is a constant threat to life. - After reviewing the risks and benefits, the patient was deemed in satisfactory condition to undergo the procedure. - The anesthesia plan was to use monitored anesthesia care (MAC). - Immediately prior to administration of medications, the patient was re-assessed for adequacy to receive sedatives. - The heart rate, respiratory rate, oxygen saturations, blood pressure, adequacy of pulmonary ventilation, and response to care were monitored throughout the procedure. - The physical status of the patient was re-assessed after the procedure. After obtaining informed consent, the endoscope was passed under direct vision. Throughout the procedure, the patient's blood pressure, pulse, and oxygen saturations were monitored continuously. The scope was introduced through the mouth, and advanced to the second part of duodenum. The upper EUS was accomplished without difficulty. The patient tolerated the procedure well. Findings: ENDOSONOGRAPHIC FINDING: : Multiple round lesions were identified endosonographically in the left lobe of the liver. The endosonographic appearance was suggestive of metastases. The lesions were hyperechoic and heterogenous. The largest lesion measured 22 mm by 21 mm in maximal cross-sectional diameter. The endosonographic borders were poorly-defined. Fine needle aspiration for cytology was performed. Color Doppler imaging was utilized prior to needle puncture to confirm a lack of significant vascular structures within the needle path. Three passes were made with the 22 gauge needle using a transgastric approach. A stylet was used. A digital marketing strategist was present and performed a preliminary cytologic examination. Final cytology results are pending. Estimated blood loss was minimal. Many enlarged lymph nodes were visualized in the celiac region (level 20). The largest measured 32 mm by 35 mm in maximal cross-sectional diameter. The nodes were oval, hypoechoic and had well defined margins. An irregular mass was identified in the pancreatic head. The mass was hypoechoic. The mass measured 65 mm by 63 mm in maximal cross-sectional diameter. The endosonographic borders were poorly-defined. The remainder of the pancreas was examined. The endosonographic appearance of parenchyma and the upstream pancreatic duct indicated parenchymal atrophy. Fine needle aspiration for cytology was performed. Color Doppler imaging was utilized prior to needle puncture to confirm a lack of significant vascular structures within the needle path. Four passes were made with the 22 gauge needle using a transduodenal approach. A stylet was used. A digital marketing strategist was present and performed a preliminary cytologic examination. Final cytology results are pending. Estimated blood loss was minimal. Impression: - Multiple metastatic lesions were found in the left lobe of the liver. Fine needle aspiration performed. - Many enlarged lymph nodes were visualized in the celiac region (level 20). - A mass was identified in the pancreatic head. This was staged T4 N1 M1 (based on metastasis to liver and pending cytologic confirmation). The staging applies if malignancy is confirmed. Fine needle aspiration performed. Recommendation: - Perform an ERCP today. - Await cytology results. Jenelle Villanueva D.O. Jenelle Villanueva DO 05/10/2020 12:52:51 PM This report has been signed electronically. Note Initiated On: 05/10/2020 11:29 AM Number of Addenda: 0 I attest to the content of the Intraoperative Record and orders documented therein, exceptions below {[id number]}
--- NOTE | 2020-05-10 12:54 | Fluoroscopy Report ---
[place] ERCP biliary ductal CLINICAL HISTORY: EXPLORE DUCTS COMPARISON STUDY: None FLUOROSCOPY TIME: 51 seconds. NUMBER OF FLUOROSCOPIC IMAGES: 20 FINDINGS: Retrograde opacification of the biliary ductal system followed by balloon insufflation and sweeping of the common duct. IMPRESSION: Image intensifier support for ERCP common duct exploration and balloon sweeping of the co mmon duct. ACT 112: Negative or not required by law. The above report was generated using voice recognition software. It may contain grammatical, syntax or spelling errors. Electronically signed by: Brendon Hein M.D. 05/10/2020 12:53 PM
--- NOTE | 2020-05-10 13:47 | Electrocardiogram Report ---
Test Reason : Blood Pressure : / mmHG Vent. Rate : 105 BPM Atrial Rate : 105 BPM P-R Int : 138 ms QRS Dur : 076 ms QT Int : 302 ms P-R-T Axes : 056 027 059 degrees QTc Int : 399 ms Sinus tachycardia Low voltage QRS Poor R wave progression, consider anterior [place] vs. lead placement vs. LVH Abnormal ECG When compared with ECG of 08-MAY-2020 13:18, QRS axis Shifted left Questionable change in initial forces of Anterior leads Confirmed by Randal Browning ([id number]) on 05/10/2020 1:47:04 PM Referred By: REFERRED SELF Confirmed By:Randal Browning
--- NOTE | 2020-05-10 13:51 | Anesthesiology Progress Note ---
Date of Service May 10, 2020 Anesthesia Post Procedure Vital Signs Vital Signs: Temp Pulse Pulse Pulse Resp BP Pulse Ox 05/10/20 13:20 86 14 94/61 L 100 05/10/20 13:10 85 17 95/60 L 100 05/10/20 13:04 36.0 C L 88 17 85/56 L 98 05/10/20 10:54 36.8 C 102 H 16 110/69 94 05/10/20 07:26 36.7 C 99 H 18 109/71 96 05/10/20 07:25 100 H 05/10/20 03:24 36.6 C 105 H 19 114/74 95 05/10/20 00:26 110 H 05/09/20 23:11 37 C 108 H 19 106/73 97 05/09/20 19:10 36.6 C 112 H 20 107/73 98 05/09/20 15:46 104 H 05/09/20 15:15 36.8 C 104 H 18 110/75 99 Pain Intensity Abdomen: Pain Intensity: 6 Transfer of Care Handoff Completed per policy Notes Mental Status: alert / awake / arousable and participated in evaluation Patient Amnestic to Procedure: Yes Nausea / Vomiting: adequately controlled Pain: adequately controlled Airway Patency, RR, SpO2: stable & adequate BP & HR: stable & adequate Hydration State: stable & adequate Anesthetic Complications: no major complications apparent and Pt Satisfied with anesthetic care
--- NOTE | 2020-05-10 17:11 | Billing Data ---
Date of Service May 10, 2020 Coding Level of Care Code D/C Day Management <30 mins
[2020-05-10] MEDS ORDERED: CIPROFLOXACIN 500 MG TAB PO SCH (21:00)
[2020-05-11] MEDS ORDERED: PANTOprazole 40 MG TAB PO SCH (09:00)
== END 2020-05-10 19:08 | disposition hospice, home (50) | DRG 435 ==
LOC: ED 12:41 → 2N 17:14 → SUATTDRO 17:14 → 2N 19:04